=== PATIENT | male | born 1955 | race Caucasian/White ===

== ENCOUNTER 2025-05-31 18:10 | Inpatient (IN) | payer MEDICARE, OTHER, SELFPAY ==
[2025-05-31 15:11] VITALS: BP 108/63; BMI 30.1
--- NOTE | 2025-05-31 15:19 | ED.GENMED ---
History of Present Illness
General
Chief Complaint: Chest Pain
Source: patient
Exam Limitations: none
Time Seen by Provider: 05/31/25 15:18
Nursing documentation reviewed up to this point in time: agreed with
History of Present Illness
History of Present Illness:
Note:
CHIEF COMPLAINT(S)
Chest pain
HISTORY OF PRESENT ILLNESS
The patient is an 69-year-old male with a history of chronic heart failure and a pacemaker with defibrillator who presented with chest pain that began this morning. The pain started when he got out of bed to use the restroom and subsided upon lying
down. He reported accompanying symptoms of vomiting and shortness of breath. The patient indicated that the chest pain has resolved since arriving with the ambulance, and he felt better after being transported. [facility]
administered 324 mg of chewable aspirin.
The pacemaker and defibrillator were implanted following a stroke, and the patients last known ejection fraction was less than 20%, possibly increasing to 40% recently. The patient expressed concern that the pacemaker was not functioning correctly.
He also mentioned a past infection with Methicillin-resistant Staphylococcus aureus (MRSA) after surgery, which was treated with antibiotics.
PAST MEDICAL AND SURGICAL HISTORY
- Chronic heart failure
- Pacemaker with defibrillator implantation following stroke
- History of Methicillin-resistant Staphylococcus aureus (MRSA)
SOCIAL DETERMINANTS AFFECTING HEALTH
The patient reported a history of smoking, which he quit within the last year due to health concerns.
SOCIAL HISTORY
- Former smoker, recently quit within the last year
- No alcohol or drug use
MEDICATIONS
- Atorvastatin (Brand name: Crestor)
- Apixaban (Brand name: Eliquis)
REVIEW OF SYSTEMS
- Cardiovascular: Chest pain resolved
- Gastrointestinal: Vomiting
- Respiratory: Shortness of breath
PHYSICAL EXAM
General: Alert, no acute distress.
Skin: Warm, dry.
Head: Normocephalic, atraumatic.
Neck: Supple, trachea midline.
Eyes, Ears, Nose, Mouth, and Throat: Oral mucosa moist.
Cardiovascular: Normal peripheral perfusion, No edema.
Respiratory: Respirations are non-labored.
Gastrointestinal: Abdomen nondistended.
Back: Normal range of motion, Normal alignment.
Musculoskeletal: Normal range of motion, normal strength.
Neurological: Alert and oriented to person, place, time, and situation, No focal neurological deficit observed.
Psychiatric: Cooperative, appropriate mood & affect.
PROBLEM LIST
- Acute: Chest pain, Vomiting, Shortness of breath
- Chronic: Chronic heart failure, History of Methicillin-resistant Staphylococcus aureus (MRSA)
PLAN
- Evaluate the function of the pacemaker/defibrillator
- Consider further cardiac evaluation given the recent symptoms
- Monitor and possibly adjust medications for chronic heart failure management
DIFFERENTIAL DIAGNOSIS
The Differential Diagnosis includes, in no particular order and is not limited to:
- Angina pectoris
- Myocardial infarction
- Congestive heart failure exacerbation
- Gastroesophageal reflux disease
- Pulmonary embolism
- Atypical pneumonia
- Cardiac arrhythmia
- Panic attack or anxiety-related chest pain
- Pleural effusion
- Costochondritis
CARE-UPDATE
05/31/25 - 23:16
Patient admitted for CHF exacerbation. Lasix IV ordered. Monitor for any chest pain. Troponin levels are trending, and troponin is detectable; however, epinephrine is not indicated at this time.
EKG
My independent EKG interpretation is:
- Rhythm: Ventricular paced rhythm
- Heart Rate: 72 beats per minute
- Additional Information: Unable to determine ischemia
Disposition:
SUMMARY OF ENCOUNTER
The patient is a 69-year-old male with a history of chronic heart failure, a pacemaker with defibrillator, and past MRSA infection, who presented with chest pain, vomiting, and shortness of breath. The chest pain started this morning upon waking,
resolved after lying down, and subsided upon arrival with the ambulance. [facility] provided 324 mg of chewable aspirin. The patients echocardiogram showed less than 20% ejection fraction, possibly improving up to 40% recently. He
was admitted for exacerbation of chronic heart failure.
DISPOSITION
Admit
ASSESSMENT
The patient is likely experiencing an exacerbation of chronic heart failure, given his history and acute presentation symptoms like chest pain, vomiting, and shortness of breath.
EMERGENCY TREATMENTS ADMINISTERED
324 mg of aspirin was provided by the [facility].
PLAN
Evaluate the function of the pacemaker/defibrillator and consider cardiac evaluation given recent chest pain symptoms. Monitor and potentially adjust medications for chronic heart failure management.
INDEPENDENT REVIEW OF LABS AND INTERPRETATION OF TESTS
My independent EKG interpretation is a ventricular paced rhythm with a heart rate of 72 beats per minute. Unable to determine ischemia.
MEDICATION RECONCILIATION
Medications include atorvastatin and apixaban. Aspirin was administered by EMS.
MEDICAL DECISION MAKING
-Chronic conditions affecting care: Chronic heart failure, History of Methicillin-resistant Staphylococcus aureus (MRSA)
-DDx list: Angina pectoris, Myocardial infarction, Congestive heart failure exacerbation, Gastroesophageal reflux disease, Pulmonary embolism, Atypical pneumonia, Cardiac arrhythmia, Panic attack or anxiety-related chest pain, Pleural effusion,
Costochondritis.
-Data:
Category 1:
My independent interpretation of EKG indicates a ventricular paced rhythm, heart rate 72 beats per minute.
-Risk:
Decisions regarding diagnostic testing with risks include consideration of admission. Lasix IV ordered for CHF exacerbation.
DIAGNOSIS
Exacerbation of chronic heart failure (ICD-10: I50.9)
Chest pain, unspecified (ICD-10: R07.9)
Shortness of breath (ICD-10: R06.02)
Phy Exam
Physical Exam
Physical Exam:
.
Scores
Heart Failure Risk
Heart Failure Risk Score: Yes
History of Stroke or TIA: Yes
History of intubation for respiratory distress: No
Heart rate on ED arrival >/= 110: No
SaO2 <90% on arrival on room air: No
HR >/=110 during 3min walk test (or too ill to perform test): No
ECG has acute ischemic changes: No
Urea >/=12mmol/L (BUN 33.6mg/dL): No
Serum CO2>/=35mmol/L: No
Troponin I or T elevated to [place] Level (0.4mg/dL): No
NT-proBNP >/=5,000ng/L (5,000pg/ml): Yes
HF Risk Score: 2
Admission Status: MEDIUM RISK 9.2% Consider observation or discharge to home with homecare & f/u visit to PCP/Patient Relations Liaison, or SNF for treatment
Heart Score for Chest Pain Patients
STEMI patient?: No
History: Moderately Suspicious
ECG: Normal
Age: >/= 65 years
Risk Factors: >/= 3 Risk Factors or History of CAD
Troponin: >1 - <3 x Normal Limit
Heart Score for Chest Pain Patients: 6
Heart Score Risk: 20.3% MACE over next 6 weeks
Course
Orders/Labs/Results
Orders:
Orders
05/31/25 Dinner
2 Gram Sodium [Sodium, 2 Gram]
At Your Request: Limited Participation
05/31/25 15:18
Electrocardiogram (*1) Stat
Reason for Study: Other
Other Reason for Exam: chest pain
Cardiac Monitoring- Treatment ONCE
EKG- Treatment ONCE
Pulse Ox/cont/shift [RESP] Stat
Quantity: 1
05/31/25 15:19
CR Chest - 2 Views Urgent
Comment:
Reason For Exam: chest pain
05/31/25 15:24
Complete Blood Count/With Diff Urgent
Comprehensive Metabolic Panel Urgent
Magnesium Urgent
NT-proBNP Urgent
PTT Urgent
Prothrombin Time Urgent
Troponin I Urgent
05/31/25 16:43
Furosemide [Lasix] 40 mg IV NOW STA
05/31/25 17:38
Admit/Transfer Patient As Directed
Co-Sign Provider:
Level of Care: Inpatient admission
Assign to:: Telemetry
Physician / Group: Hospitalist Group
Diagnosis: Acute exacerbation of CHF
Reason for Telemetry: Arrhythmia
Date to Stop Telemetry: 06/03/25
Time to Stop Telemetry: 11:00
Reason for Hospitalization: As above
Expected length of stay greater than two midnights?: Yes
ELOS- Estimated Length of Stay in days: 3
I certify the patient meets the requirements for IP care: Yes
PRN Pain Medication Management As Directed
May give lesser potent ordered pain med per pt: Yes
preference::
Protocol:: Medication orders for pain may be administered in a
manner that supports deferring to patient preference
when the pt is:
- Requesting an ordered lesser potent pain medication.
Least to most potent pain medications are defined
as: acetaminophen < NSAID < tramadol < opioids
(morphine, oxycodone, hydromorphone).
- Requesting a lesser dose of the same medication IF
ORDERED.
- Requesting a less intrusive route of administration
if both routes are prescribed by the provider (PO <
IV).
05/31/25 17:41
Code Status As Directed
Resuscitation Status: Do not resuscitate
Reached after discussion with pt or family/Healthcare POA: Yes
DNR Bracelet Application ONCE
05/31/25 18:02
Obtain Records As Directed
Dates of Information to be Released: past 1 month
Type of Information Requested: Entire Record
Obtain Records from: [facility]
05/31/25 19:44
Albuterol [ProAIR HFA INHALER] 2 puff INH R Q4HPRN PRN wheezing/sob
Atorvastatin [Lipitor] 40 mg PO QPM
05/31/25 19:44
CT Head W/o Iv Contrast Routine
Comment:
Reason For Exam: Fall
CARDIOLOGY CONSULT Routine
Consulting Provider: Dana Reed
Was physician already notified: Yes
Consult Psychiatry [PSYCHIATRY CONSULT] Routine
Consulting Provider: Kristin Sotelo
Was physician already notified: Yes
HF DIETARY CONSULT Routine
HF EDUCATOR CONSULT Routine
Comment:
Activity As Directed
Activity Level: As Tolerated
Intake/ Output As Directed
Frequency: Per unit guidelines
Patient Education As Directed
Type: CHF folder
Comment: give on admission. Document in Interdisciplinary Education record
Sleep Apnea Assessment by RN As Directed
Comment:
Physician Instructions:
Vital Signs As Directed
Frequency: Other
Additional Instructions:: Q12 or per unit guidelines if more frequent.
Weight As Directed
Frequency: Daily
Type of Scale: Standing Scale
Comment: Daily morning weight. If unable to stand, use balanced bed scale.
Weight As Directed
Frequency: Once
Type of Scale: Standing Scale
Comment: Upon Admission. If unable to stand, use balanced bed scale.
CR Hip - LT w/wo Pel 2-3 Vw* Routine
Comment:
Reason For Exam: Fall on left hip
Include a pelvis x-ray?: Yes
CR Shoulder - Left Min 2 View* Routine
Comment:
Reason For Exam: Fall on left shoulder
Pulse Ox/cont/shift [RESP] Routine
Quantity: 1
Special Instructions: Daily pulse oximetry at rest. If greater than 92% at rest also obtain pulse oximetry
while ambulating as tolerated.
Ot Eval And Treat Routine
Pt Eval And Treat Routine
Activity Level: Ambulate
05/31/25 20:00
Apixaban [Eliquis] 5 mg PO BID
Divalproex Delayed Rel. 12 Hr [Depakote (12 Hr Release)] 1,000 mg PO BID
magnesium oxide 400 mg PO BID
05/31/25 20:43
Troponin I Q6H
Comment: at admission & every 6 hours x 2 (3 total), ECG to be done with each level
05/31/25 22:00
Melatonin 3 mg PO HS
06/01/25 01:44
Troponin I Q6H
Comment: at admission & every 6 hours x 2 (3 total), ECG to be done with each level
06/01/25 06:00
Echo 2D MMode Color/Doppler IN AM
Reason for Study: heart failure
Complete Blood Count/With Diff IN AM
Comprehensive Metabolic Panel IN AM
Magnesium IN AM
TSH Reflex To Free T4 IN AM
Levothyroxine [Synthroid] 100 mcg PO DAILY@0600
06/01/25 07:44
Troponin I Q6H
Comment: at admission & every 6 hours x 2 (3 total), ECG to be done with each level
06/01/25 08:00
Amiodarone [Pacerone] 200 mg PO DAILY
Aspirin Low Dose EC [Aspir Low (Enteric Coated)] 81 mg PO DAILY
Cyanocobalamin [Vitamin B-12] 1,000 mcg PO DAILY
Ergocalciferol [Drisdol (Vitamin D2)] 50,000 units PO MO@0800
Furosemide [Lasix] 40 mg IV BID AT 0800,1600
Metoprolol Xl [Toprol Xl] 25 mg PO DAILY
Sertraline HCl [Zoloft] 25 mg PO DAILY
empagliflozin 10 mg PO DAILY
06/03/25 11:00
DC Protocol for Telemetry ONCE
Abnormal Lab Results
05/31/25
15:24
RBC 4.05 L 10^6/uL
(4.70-6.10)
Hct 38.8 L %
(39.0-52.0)
MCV 95.8 H fL
(80.0-94.0)
MCH 32.3 H pg
(27.0-31.0)
MPV 10.5 H fL
(7.4-10.4)
Lymphocytes % 19.7 L %
(20.5-51.1)
Chloride 108 H mmol/L
(98-107)
BUN 27 H mg/dl
(9-20)
Glucose 160 H mg/dl
(70-99)
Troponin I 0.042 H* ng/ml
05/31/25 15:24
05/31/25 15:24
Vital Signs
Initial and Last Documented VS:
Initial Vital Signs
Temp Pulse Resp BP Pulse Ox
98.1 F 68 16 108/63 96
05/31/25 15:11 05/31/25 15:11 05/31/25 15:11 05/31/25 15:11 05/31/25 15:11
Last Documented Vital Signs
Temp Pulse Resp BP Pulse Ox
98.3 F 64 16 113/61 95
05/31/25 19:50 05/31/25 19:50 05/31/25 19:50 05/31/25 19:50 05/31/25 19:50
*Pulse Oximetry
Patient hypoxic: no
*Critical Care Note
Total Time (30-74mins, 75-104mins- exclusive of procedures): Not Applicable
ED Attending Note
-
Portions of this chart may have been created with voice recognition software.� Occasional wrong word or��sound alike� substitutions may have occurred due to the inherent limitations of voice recognition software.
Discharge Plan
Departure
Patient Disposition: Admit
Date of Disposition: 05/31/25
Time of Disposition: 18:09
Admit to: Telemetry
Presentation/result/management discussed w/ accepting MD/DO: Hospitalist
Condition: Good
Discharge Problem:
CHF (congestive heart failure), Chest pain
Interventions
Interventions:
*Risk Screen - Suicide Last Done: 05/31/25 19:55
*General Assessment Last Done: 05/31/25 15:11
*Neglect/Abuse Screening Last Done: 05/31/25 15:11
*ED- Fall Risk Assessment Last Done: 05/31/25 17:39
*ED COVID-19 Vaccine History Last Done: 05/31/25 19:55
*Nursing Disposition Last Done: 05/31/25 19:30
ED- Cardiac Assessment Last Done: 05/31/25 17:39
Discharge Date and Time
Discharge Date/Time: 05/31/25 19:30
[2025-05-31 15:42] LABS: Hematocrit 38.8 % (39.0-52.0); Hemoglobin 13.1 g/dL (13.0-18.0); Mean Corp Hgb Conc. 33.8 g/dL (33.0-37.0); Mean Corpuscular Volume 95.8 fL (80.0-94.0); Nucleated Red Blood Cells % 0 % (-); Platelet Count 135 10^3/uL (130-400); Red Cell Dist. Width 12.2 % (11.5-14.5)
[2025-05-31 15:46] LABS: INR 1.09; PT 14.4 Sec (11.4-14.6)
[2025-05-31 15:47] LABS: APTT 25.0 Sec (23.4-35.0)
[2025-05-31 15:50] LABS: ALT (SGPT) 14 U/L (0-50); AST (SGOT) 22 U/L (17-59); Albumin 4.0 g/dl (3.5-5.0); Alkaline Phosphatase 48 U/L (38-126); Blood Urea Nitrogen 27 mg/dl (9-20); Calcium 9.6 mg/dl (8.4-10.2); Carbon Dioxide 28 mmol/L (22-30); Chloride 108 mmol/L (98-107); Estimated Creatinine Clearance 86 ml/min; Glucose 160 mg/dl (70-99); Magnesium 1.6 mg/dl (1.6-2.3); Potassium 5.0 mmol/L (3.5-5.1); Sodium 140 mmol/L (135-145); Total Protein 6.5 g/dl (6.3-8.2); eGFR > 60.00
[2025-05-31 16:00] VITALS: BP 107/66
[2025-05-31 16:06] LABS: Troponin I 0.042 ng/ml
[2025-05-31] MEDS: LASIX 40 MG IV (16:57)
[2025-05-31 17:00] VITALS: BP 114/69
--- NOTE | 2025-05-31 17:22 | W.PN.UPDATE ---
Update Note
Progress Note Update
This update note is intended as an addendum to the history and physical in the chart written by the resident.
I personally performed a history and physical exam of the patient and discussed management with the resident. I reviewed the resident's note and agree with the documented findings and plan of care HPI/CC.
Mr. Alston is a 69-year-old male with a medical history of recent stroke residual left-sided weakness and heart failure with reduced ejection fraction who presented from assisted living facility due to dizziness, chest pain, and lower extremity
swelling. Patient reports poor care at his living facility and not having received his medications for the past 3 days. In the ED he was mildly hypotensive which is likely his baseline (on midodrine as outpatient) but otherwise hemodynamically
stable. His labs were significant for mildly elevated troponin of 0.042 and a proBNP of 6500. Chest x-ray showed no acute abnormalities. He is currently chest pain-free and breathing comfortably. He is tearful and depressed upon interview saying
he has not seen his girlfriend in many days and thinks she may have . He does not want to spend the rest of his life back and forth between the hospital and his assisted living facility. 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 He has been admitted for further evaluation and management of chest pain and CHF exacerbation?
Physical exam
General: Tearful, no acute distress
HEENT: Atraumatic, EOMI, anicteric sclera
CV: Regular rhythm, rate controlled around 60, no murmur
Pulm: No wheezing or rhonchi, no increased work of breathing
Abdomen: Soft, nontender
Extremities: Mild pedal edema, no deformity
Skin: Mild abrasion right galindo, warm and dry
Neuro: CN II through XII intact, no tremor, mild left upper and lower extremity weakness
Psych: Calm, depressed affect, tearful
Acute on chronic HFrEF:
- IV diuretics, monitor I's and O's and daily weights
- GDMT as blood pressure tolerates (patient reports being on Entresto although I do not see this on his medication reconciliation)
- Beta-blockade with metoprolol succinate 25 mg daily
- Echocardiogram
- Cardiology consult
- Would recommend involving palliative care for assistance with clarifying goals of care
Chest pain:
- With associated elevated troponin
- No acute changes on EKG
- Continue telemetry monitoring
- trend troponins
- Continue home aspirin and statin
Depression:
- Unclear about severity of depression on a chronic basis but currently appears significantly depressed
- Is on sertraline and divalproex (for depression?) at home which we will continue while inpatient
- Titration of depression medications as appropriate considering acuity of depression
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
[2025-05-31 18:00] VITALS: BP 119/70
[2025-05-31 19:50] VITALS: BP 113/61; BMI 27.6
--- NOTE | 2025-05-31 20:00 | PTCARENOTE ---
Pt arrived to room 432-01. Pt ambulated from stretcher to bed x1 assist with cane. Pt AAOx3, VSS. Pt oriented to room, call velasco placed within reach. Bed alarm in place.
[2025-05-31 20:24] VITALS: BMI 27.6
[2025-05-31 21:13] LABS: Troponin I 0.051 ng/ml
[2025-05-31] MEDS: LIPITOR 40 MG PO (21:25)
[2025-05-31] MEDS: MELATONIN 3 MG PO (21:26)
[2025-05-31] MEDS: DEPAKOTE (12 HR RELEASE) 1000 MG PO (21:26)
[2025-05-31] MEDS: ELIQUIS 5 MG PO (21:26)
[2025-05-31 23:30] VITALS: BP 108/65
[2025-06-01] VITALS (7 sets, daily range): BP systolic 102–124; BP diastolic 56–69; PULSE 65–66; O2SAT 96–97; BMI 28.7; BMI 28.4
[2025-06-01 02:49] LABS: Troponin I 0.067 ng/ml
[2025-06-01] MEDS: SYNTHROID 100 MCG PO (06:31)
--- NOTE | 2025-06-01 08:41 | W.PN.HOSP.TC ---
Addendum entered and electronically signed by Gisselle Subramanian MD 06/01/25 13:16:
I saw and evaluated the patient independently. I reviewed the resident�s note and agree with findings and plan as documented by Dr. Boateng.
GENERAL: well developed, well nourished, male in no apparent distress
HEENT: NC/AT--slight left facial droop, loss of nasolabial fold
HEART: regular rate and rhythm, +S1, +S2
LUNGS : clear to auscultation bilaterally
ABDOM: soft, nontender, nondistended, + bowel sounds
EXT: no cyanosis, clubbing, or edema
NEUROLOGIC: left sided weakness
Chest pain-- doubt ACS--EKG showed ventricular paced rhythm, no ST segment changes--trend troponin--await cards input--check ECHO- Continue aspirin, statin, metoprolol
Acute on chronic HFrEF-- ProBNP 6580 on presentation, no pulmonary congestion on CXR--Hold home torsemide�-cont IV Lasix 40 Mg twice daily� Continue GDMT therapy with SGLT2, metoprolol succinate 25 mg daily--await ECHO--daily weight, I/Os
Mechanical fall-- Occurred yesterday, positive head strike, landed on left side of body--CT scan/x-rays without acute issues--PT/OT rec SNF
Presumed persistent? Atrial fibrillation with ventricular pacing- Continue home amiodarone, metoprolol- Continue Eliquis
Hypothyroidism� Continue levothyroxine� Check TSH
Depression/anxiety- Continue sertraline, divalproex--apprec psych--no longer suicidal--1:1 stopped
Hyperlipidemia-Continue statin
COPD-Not in acute exacerbation-Continue home regimen
CODE STATUS-- DNR
DVT proph-- Eliquis
Original Note:
Today's Communication/Plan
-
Awaiting Echo results.
IV Lasix 40 mg BID
Cardiology consulted.
Psychiatry consulted.
Assessment / Plan
Assessment / Plan
69-year-old male with a past medical history of CVA with residual left-sided hemiparesis, atrial fibrillation with ventricular pacing, heart failure with reduced ejection fraction, hypothyroidism, COPD, depression and anxiety who presented with
chest pain. Patient had an episode of left-sided chest pain with associated shortness of breath, palpitations, lightheadedness, 1 episode of vomiting and cough. Patient had a fall 05/30/25 while walking back from the grocery store to his assisted
living facility ([facility]) where he landed on the left side of his body and had a possible head strike on the ground. The police were called but patient was not taken to the hospital as he endorsed feeling well. He expresses suicidal ideation
with plan of stepping into traffic, and states he 'cannot live without his girl' who he assumes is .
ASSESSMENT/PLAN:
# Chest pain -concern for ACS
EKG showed ventricular paced rhythm, no ST segment changes
- Admitted to telemetry
- Trending troponin every 6 hours, 0.042, 0.051, 0.067, and 0.063 this morning.
- Serial EKG monitoring
- Continue aspirin, statin, metoprolol
- Cardiology consulted: will see him this morning
#Acute on chronic HFrEF
- ProBNP 6580 on presentation, no pulmonary congestion on CXR
- Hold home torsemide
� Start IV Lasix 40 Mg twice daily
� Continue GDMT therapy with SGLT2, metoprolol succinate 25 mg daily
� Awaiting Echo results
� Daily weights, I's and O's
� Trend BMP
� Monitor blood pressure, given patient's home use with midodrine
- Possibly involve palliative care for goals of care conversation
# Mechanical fall
- Occurred yesterday, positive head strike, landed on left side of body
- CT head without contrast: No acute intracranial hemorrhage or extra-axial collection.
- XR Left shoulder and XR L hip/pelvis: showed no fracture or dislocation.
- PT/OT consulted
#Atrial fibrillation with ventricular pacing
- Continue home amiodarone, metoprolol
- Continue Eliquis
#Hypothyroidism
� Continue levothyroxine
� Check TSH
#Depression/anxiety
- Continue sertraline, divalproex
- Admits suicidal ideation with a plan of stepping into traffic
- Psych consulted
#Hyperlipidemia
-Continue statin
#COPD
-Not in acute exacerbation
-Continue home regimen
CODE STATUS DNR
DVT prophylaxis: Eliquis
Anticipated Discharge: > 48 hours
Subjective/Interval History
-
Date of Service: June 01, 2025
Patient denies chest pain, shortness of breath, lightheadedness or any other symptoms. He states he wants help for his depression, and does want to be treated in the hospital because he promised Dr. Johnson he would be here for at least 24 hours.
Patient does not want to return to [facility] because of poor living conditions, and states he would 'rather live in the [place] [facility] by himself.' Patient also states he is 'going to be careful about what [he] says' since he already has a sitter.
Objective Data
-
Labs:
Laboratory Results
06/01/25 06/01/25
06:00 08:15
WBC Pending
Hgb Pending
Hct Pending
Plt Count Pending
Sodium Pending
Potassium Pending
Chloride Pending
Carbon Dioxide Pending
BUN Pending
Creatinine Pending
Glucose Pending
Calcium Pending
Total Bilirubin Pending
AST Pending
ALT Pending
Alkaline Phosphatase Pending
Vital Signs:
Vital Signs
Temp Pulse Resp BP Pulse Ox
97.4 F 65 14 124/69 98
06/01/25 07:00 06/01/25 07:00 06/01/25 07:00 06/01/25 07:00 06/01/25 07:00
I&O
05/31/25 06/01/25 06/02/25
06:59 06:59 06:59
Intake Total 240 / 240
Output Total 1000 / 1000
Balance -760 / -760
Review of Systems
-
History Source: Patient
All other systems: Reviewed and negative
Constitutional: Reports No Symptoms
EENT: Reports No Symptoms Reported
Respiratory: Reports No Symptoms
Cardiac: Reports No Symptoms
Abdomen/GI: Reports No Symptoms
Breast: Reports No Symptoms
Genitourinary: Reports No Symptoms
Musculoskeletal: Reports No Symptoms
Skin: Reports No Symptoms
Endocrine: Reports No Symptoms
Hematologic / Lymphatic: Reports No Symptoms
Psych: Reports Depressed and Sad (and tearful)
Physical Exam
-
General: Well Developed, Well Nourished, No Apparent Distress, Comfortable and Conversant
HEENT: Normocephalic, Atraumatic, Moist Mucous Membranes and Anicteric
Respiratory: Clear to Auscultation
Cardiac: Regular Rhythm and S1/S2
GI: Soft, Nontender, Nondistended and Normal Bowel Sounds
Musculoskeletal: No Clubbing, No Cyanosis, No Edema, Edema, Right Lower Extrem (1+ pitting) and Edema, Left Lower Extrem (1+ pitting)
Skin: Warm
Neuro: Awake, AO x 3 and Nonfocal/Grossly Intact
Psych: Depressed (Tearful)
Data Reviewed
-
Old Records: Reviewed
[2025-06-01] MEDS: MAG-TAB SR 84 MG PO ×2 (08:49→19:28)
[2025-06-01] MEDS: ZOLOFT 25 MG PO (08:49)
[2025-06-01] MEDS: DEPAKOTE (12 HR RELEASE) 1000 MG PO ×2 (08:49→19:28)
[2025-06-01] MEDS: TOPROL XL 25 MG PO (08:49)
[2025-06-01] MEDS: PACERONE 200 MG PO (08:49)
[2025-06-01] MEDS: FARXIGA 10 MG PO (08:49)
[2025-06-01] MEDS: VITAMIN B-12 1000 MCG PO (08:49)
[2025-06-01] MEDS: ASPIR LOW (ENTERIC COATED) 81 MG PO (08:49)
[2025-06-01] MEDS: ELIQUIS 5 MG PO ×2 (08:49→19:28)
[2025-06-01] MEDS: LASIX 40 MG IV ×2 (08:50→16:24)
[2025-06-01] MEDS: DRISDOL (VITAMIN D2) 50000 UNITS PO (09:03)
[2025-06-01 09:09] LABS: ALT (SGPT) 15 U/L (0-50); AST (SGOT) 22 U/L (17-59); Albumin 3.8 g/dl (3.5-5.0); Alkaline Phosphatase 53 U/L (38-126); Blood Urea Nitrogen 23 mg/dl (9-20); Calcium 9.4 mg/dl (8.4-10.2); Carbon Dioxide 29 mmol/L (22-30); Chloride 107 mmol/L (98-107); Estimated Creatinine Clearance 97 ml/min; Glucose 92 mg/dl (70-99); Magnesium 1.7 mg/dl (1.6-2.3); Potassium 4.7 mmol/L (3.5-5.1); Sodium 140 mmol/L (135-145); Total Protein 6.3 g/dl (6.3-8.2); eGFR > 60.00
[2025-06-01 09:37] LABS: Troponin I 0.063 ng/ml
--- NOTE | 2025-06-01 09:42 | CON.CAR ---
Addendum entered and electronically signed by Yann Vázquez DO 06/01/25 17:44:
I saw and examined the patient.
The Program Support Assistant's note was reviewed and I agree with the note.
Comment:
Plan:
Continue IV Lasix diuresis.
Check echocardiogram. History of improved cardiomyopathy.
Continue medical therapy for cardiomyopathy as his blood pressure will allow. Continue Farxiga and metoprolol. Entresto was held previously potentially due to hypotension. He had been on midodrine in the past but is currently not requiring this.
Remains sinus rhythm on amiodarone 200 mg daily and anticoagulation with Eliquis.
Continue medical therapy of non-WI troponin.
Requested records.
Original Note:
Consultation
Consultation Request
Date/Time Consultation Requested: 06/01/2025
Date/Time Consultation Performed: 06/01/2025
Requesting Provider: Dr. Subramanian
Performing Provider: Argelia Benavides PA-C for Dr. Vázquez
Reason for Consultation: CHF, CM
Medical History
-
History of Present Illness:
HPI: Nas is a 69 year old male with PMH of chronic HFrEF, paroxysmal atrial fibrillation, CAD, CM, [employer]-D, prior CVA, HLD, hypothyroidism, depression, anxiety, and COPD. He notes he was recently admitted at [facility] and was discharged to
nursing facility where he has been residing. He states he has been under increased stress there and does not think he has been getting his usual cardiac medications. He then developed chest pain, shortness of breath, and dizziness, so EMS was called
and he was brought to [facility] ER. In ER, he was found to have evidence of acute heart failure with proBNP elevated at 6580. Also w/ elevated troponin. He was admitted for further workup and evaluation and cardiology consulted. He notes he is feeling
better from a chest pain/breathing standpoint. No recurrent chest pain noted. Breathing feels stable this AM. He continues to struggle with depression and becomes tearful at times during exam.
PMH:
Chronic HFrEF
Paroxysmal atrial fibrillation
Chronic Eliquis anticoagulation
Multivessel CAD, medically managed
Ischemic CM, EF previously 25%, improved to 40% by echo 01/2025
s/p Medtronic CTR-D 08/01/2024
h/o recent CVA
HLD
Hypotension, on chronic midodrine
Hypothyroidism
Depression/anxiety
COPD
Past Medical History
Past Medical History: Other (In HPI)
Past Surgical History: Cardiac (s/p [employer]PER[employer] SHOP-D 07/2024)
Social History
Tobacco: Former Smoker
Alcohol: Occasional
Personal: Single
Living: Assisted Living
Family History
Family History: Reviewed & Not Pertinent
Allergies / Home Medications
Allergy/AdvReac Type Severity Reaction Status Date / Time
No Known Allergies Allergy Unverified 05/31/25 15:10
�Medication �Instructions �Recorded �Confirmed �Type
albuterol sulfate 90 mcg/actuation 2 puff inhalation R Q4HPRN PRN 05/31/25 05/31/25 History
aerosol inhaler wheezing/sob
amiodarone 200 mg tablet 200 mg PO DAILY Arrhythmia 05/31/25 05/31/25 History
apixaban 5 mg tablet (Eliquis) 5 mg PO BID Blood Clot 05/31/25 05/31/25 History
Prevention/Tx
aspirin 81 mg tablet,delayed 81 mg PO DAILY Blood Clot 05/31/25 05/31/25 History
release Prevention/Tx
atorvastatin 40 mg tablet 40 mg PO QPM High Cholesterol 05/31/25 05/31/25 History
cyanocobalamin (vitamin B-12) 1,000 mcg PO DAILY Supplement 05/31/25 05/31/25 History
1,000 mcg tablet
divalproex 500 mg tablet,delayed 1,000 mg PO BID Neurological 05/31/25 05/31/25 History
release Condition
empagliflozin 10 mg tablet 10 mg PO DAILY Heart Failure 05/31/25 05/31/25 History
ergocalciferol (vitamin D2) 1,250 1,250 mcg PO QWEEK Supplement 05/31/25 05/31/25 History
mcg (50,000 unit) capsule
levothyroxine 100 mcg tablet 100 mcg PO DAILY Thyroid 05/31/25 05/31/25 History
magnesium oxide 400 mg PO BID Supplement 05/31/25 05/31/25 History
melatonin 3 mg tablet 3 mg PO HS Sleep 05/31/25 05/31/25 History
metoprolol succinate 25 mg 25 mg PO DAILY Heart Failure 05/31/25 05/31/25 History
tablet,extended release 24 hr
midodrine 2.5 mg tablet 7.5 mg PO TID Blood Pressure 05/31/25 05/31/25 History
sertraline 25 mg tablet 25 mg PO DAILY Mental Health 05/31/25 05/31/25 History
torsemide 20 mg tablet 40 mg PO DAILY Fluid 05/31/25 05/31/25 History
Retention/Swelling
Review of Systems
-
History Source: Patient
All other systems: Negative unless noted
Physical Exam
Vital Signs
Temp Pulse Resp BP Pulse Ox
97.4 F 65 14 124/69 98
06/01/25 07:00 06/01/25 08:49 06/01/25 07:00 06/01/25 08:49 06/01/25 07:00
Lab Results
06/01/25 08:15
Troponin I 0.063 ng/ml H* 06/01/25 09:00
Zvd-R-Ukohzjejczy Pept 6580 pg/ml 05/31/25 15:24
Physical Exam
General: Well Developed, Well Nourished and No Apparent Distress
HEENT: Normocephalic, Anicteric and Moist Mucous Membranes
Respiratory: Clear and Non Labored Respirations
Cardiac: S1/S2 and Regular Rhythm
Musculoskeletal: No Clubbing, No Cyanosis and No Edema
Skin: Warm and Dry
Neuro: AO x 3 and Nonfocal/Grossly Intact
Impression / Plan
-
PCP: None
Hospitality Specialist: Dr. Romero Zamora ([facility])
Impression:
Presented with chest pain, SOB, dizziness
Acute on chronic HFmrEF
Paroxysmal atrial fibrillation
Chronic Eliquis anticoagulation
Multivessel CAD by prior cath at [facility] 07/2024, medically managed
Ischemic CM, EF previously 25%, improved to 40% by echo 01/2025
s/p Medtronic CTR-D 08/01/2024
h/o recent CVA
HLD
Hypotension, on chronic midodrine
Hypothyroidism
Depression/anxiety
COPD
LHC 07/[address] [facility]'s: Severe diffuse coronary disease. [employer] of the mid LAD with severe diffuse disease of all branch vessels. Ramus intermedius contained a 95% stenosis in the mid vessel and the circumflex contained a 90% stenosis in mid
vessel. RCA was free of critical disease.
Echo 01/25/2025 @ [facility]: EF 40%, moderate global hypokinesis mild , mild MAC, trace MR, mild TR
Echo 06/01/2025: Study completed, report pending.
Plan:
-Presented with chest pain, SOB, and dizziness. Admitted with acute heart failure and elevated troponin.
-Diuresing with IV lasix 40mg BID.
-Weight down to 211 lbs overnight. Continue to follow daily weights, I&Os.
-Creat stable at 0.8.
-Check echo. Known history of ischemic cardiomyopathy with EF previously 25%, improved to 40% by echo 01/2025.
-Continue medical therapy for CM as BP allows. Continue Farxiga 10mg daily, metoprolol 25mg daily. Previously on Entresto, suspect stopped recently as OP due to hypotension.
-Has been maintained on midodrine as OP, not currently requiring.
-History of atrial fibrillation noted. No recent arrhythmia noted on device check in ER. Continue amiodarone 200mg daily.
-EKG reviewed, paced w/ no acute changes noted.
-Continue anticoagulation with Eliquis 5mg BID and aspirin 81mg daily due to h/o CAD and recent CVA by report.
-Elevated troponin noted, peaking at 0.067 and trending down thereafter. Suspect nonischemic myocardial injury in the setting of acute heart failure exacerbation.
-TSH within normal limits at 1.84.
-Records requested and reviewed from primary staff readiness officer.
HPI: Nas is a 69 year old male with PMH of chronic HFrEF, paroxysmal atrial fibrillation, CAD, CM, [employer]-D, prior CVA, HLD, hypothyroidism, depression, anxiety, and COPD. He notes he was recently admitted at [facility] and was discharged to
nursing facility where he has been residing. He states he has been under increased stress there and does not think he has been getting his usual cardiac medications. He then developed chest pain, shortness of breath, and dizziness, so EMS was called
and he was brought to [facility] ER. In ER, he was found to have evidence of acute heart failure with proBNP elevated at 6580. Also w/ elevated troponin. He was admitted for further workup and evaluation and cardiology consulted. He notes he is feeling
better from a chest pain/breathing standpoint. No recurrent chest pain noted. Breathing feels stable this AM. He continues to struggle with depression and becomes tearful at times during exam.
Data Reviewed
-
EKG: Tracing Personally Visualized and interpreted
Radiology: Report Reviewed by me
CT Scan: Report Reviewed by me
Labs: Labs Reviewed by me
Old Records: Requested and Reviewed
[2025-06-01 09:51] LABS: Hematocrit 40.6 % (39.0-52.0); Hemoglobin 13.6 g/dL (13.0-18.0); Mean Corp Hgb Conc. 33.5 g/dL (33.0-37.0); Mean Corpuscular Volume 97.4 fL (80.0-94.0); Nucleated Red Blood Cells % 0 % (-); Platelet Count 135 10^3/uL (130-400); Red Cell Dist. Width 12.1 % (11.5-14.5)
--- NOTE | 2025-06-01 11:26 | CS.PSYCHR ---
Consult Summary - Psychiatry
-
Pt is a 69 yo male with hx of recent stroke with residual left-side weakness, HFrEF, who presented from assisted living facility with lower ext swelling, dizziness, chest pain. Pt admitted acute on chronic heart failure, mildy elevated Troponin.
Pt noted stating he feels depressed, does not want to live anymore without his girlfriend. Pt is on Zoloft 25 mg QD and Depakote 1000 mg BID, which he states his for recent onset of mood instability, with episodes of tearfulness. Pt reportedly
feared his girlfriend had because he hadn't seen her for a while. Today he states she may be hospitalized somewhere. He states she is his caregiver, was helping him at home and they became close. Pt states he is unhappy about being in
assisting living and nursing facilities, reports he was evicted from his apartment, then had the stroke a couple days later, unclear about the date when this occurred. Pt complains about his family, states his [id number] takes him to the
hospital- last time was March 2025 at [facility] for legs swelling and falling. Pt states a doctor there diagnosed him with Vascular Dementia, but he does not agree with this. Pt states he feels depressed due to losses/circumstances. He denies
active SI, denies any suicidal intent or impulse to act.
Psych Hx: denied prior to stroke; reports he was in the 'Senior Behavior Unit' at [facility] due to agitation. Pt denies past depression, states he has had a good life
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
MSE: pt alert, oriented, sitting up in bed, making eye contact. Speech spontaneous, continuous, mildly pressured, giving information, answering questions. Mood dysphoric, affect appropriate, tearful at times. No overt signs of psychosis, no
signs of cailin. Pt denies active suicidal ideation, reports recent passive thoughts of nothing to live for. Insight limited to fair
Imp: Unspecified Depressive d/o, denies any intent to act on passive SI
Rec: Consider increasing Zoloft, although pt is ambivalent about this, states he prefers not to be on as many medications.
Will check VPA level, since pt is on a significant dose of Depakote reportedly for mood
Will stop 1:1 supervision, does not appear to be necessary. Will follow
--- NOTE | 2025-06-01 15:24 | CM ---
manager orange reviewed patient's chart and met with patient this am, patient reports that he was at [facility] and was discharged to [facility], patient reports that he has a long history of placement, and has been recently in [place]
[facility] for psych placement for some agitation, prior to that patient has been mainly in the [place] area at [facility], [facility], and has spent time in [place], patient reports that he goes to nursing homes and
is cleared for discharge and leaves and ends up going to the hospitals to be placed again. Patient reports that he is agreeable to placement, he is independent with adl's and uses a cane with ambulation, patient reports falls.
Plan; Skilled placement, patient will need [facility] evaluation for placement, referral sent. Patient agreeable to any snf, referrals sent to [facility], [facility], [facility], [facility] and [facility].
PCP: None
Pharmacy: unknown
[2025-06-01] MEDS: LIPITOR 40 MG PO (17:17)
[2025-06-01] MEDS: MELATONIN PO (21:35)
[2025-06-02 03:52] VITALS: BP 95/55
[2025-06-02] MEDS: SYNTHROID 100 MCG PO (05:45)
[2025-06-02 06:00] VITALS: BMI 27.9
[2025-06-02 08:11] VITALS: BP 109/68
[2025-06-02] MEDS: LASIX 40 MG IV (08:33)
[2025-06-02] MEDS: ASPIR LOW (ENTERIC COATED) 81 MG PO (08:34)
[2025-06-02] MEDS: ELIQUIS 5 MG PO ×2 (08:34→20:23)
[2025-06-02] MEDS: DEPAKOTE (12 HR RELEASE) 1000 MG PO ×2 (08:34→20:23)
[2025-06-02] MEDS: PACERONE 200 MG PO (08:34)
[2025-06-02] MEDS: FARXIGA 10 MG PO (08:34)
[2025-06-02] MEDS: VITAMIN B-12 1000 MCG PO (08:34)
[2025-06-02] MEDS: TOPROL XL 25 MG PO (08:34)
[2025-06-02] MEDS: MAG-TAB SR 84 MG PO ×2 (08:34→20:23)
[2025-06-02 08:35] LABS: Hematocrit 42.1 % (39.0-52.0); Hemoglobin 14.1 g/dL (13.0-18.0); Mean Corp Hgb Conc. 33.5 g/dL (33.0-37.0); Mean Corpuscular Volume 95.0 fL (80.0-94.0); Nucleated Red Blood Cells % 0 % (-); Platelet Count 141 10^3/uL (130-400); Red Cell Dist. Width 11.9 % (11.5-14.5)
[2025-06-02] MEDS: ZOLOFT 25 MG PO (08:35)
[2025-06-02 08:56] LABS: Depakane 63.9 ug/ml (50.0-120.0)
[2025-06-02 08:59] LABS: ALT (SGPT) 16 U/L (0-50); AST (SGOT) 22 U/L (17-59); Albumin 4.0 g/dl (3.5-5.0); Alkaline Phosphatase 60 U/L (38-126); Blood Urea Nitrogen 26 mg/dl (9-20); Calcium 9.6 mg/dl (8.4-10.2); Carbon Dioxide 31 mmol/L (22-30); Chloride 103 mmol/L (98-107); Estimated Creatinine Clearance 78 ml/min; Glucose 97 mg/dl (70-99); Potassium 4.7 mmol/L (3.5-5.1); Sodium 139 mmol/L (135-145); Total Protein 6.6 g/dl (6.3-8.2); eGFR > 60.00
[2025-06-02 09:05] LABS: Troponin I 0.066 ng/ml
--- NOTE | 2025-06-02 11:26 | W.PN.CARDCBS ---
Addendum entered and electronically signed by Yann Vázquez DO 06/02/25 20:23:
I saw and examined the patient.
The Dispute Coordinator's note was reviewed and I agree with the note.
Comment:
Plan:
He has hx of ischemic CM with EF previously 25%, improved to 40% by echo 01/2025 now found to be reduced at 25 to 30% on echo this admission
Cont IV diuresis
Cont Toprol and Farxiga.
Entresto stopped previously due to hypotension; consider ACEI/ARB this admit if bp can tolerate as part of GDMT
Cont Eliquis and amiodarone for hx PAfib; no recent AFib on PPM interrogation
Cont ASA for hx of CAD, medical management of multivessel CAD by cath [facility]
Cont tx of anxiety and depression, pt may need geriatric psych facility.
Original Note:
Today's Communication / Plan
-
Continue IV diuresis
Continue Toprol, Farxiga. FREDIS/ARB currently on hold secondary to hypotension. Could consider starting low-dose ARB after transition to oral Lasix
Continue Eliquis and amiodarone
Impression / Plan
-
PCP: None
Fiberglass Ski Maker: Dr. Romero Zamora ([facility])
Impression:
Presented 05/31/2025 with chest pain, SOB, dizziness
Acute on chronic HFmrEF, proBNP 6580
Paroxysmal atrial fibrillation
Abnormal troponin, peaked at 0.067
Chronic Eliquis anticoagulation
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 07/2024, medically managed
Ischemic CM, EF previously 25%, improved to 40% by echo 01/2025, 25-30% on echo 06/10/2025
s/p [employer] CTR-D 08/01/2024
h/o recent CVA
HLD
Hypotension, on chronic midodrine
Hypothyroidism
Depression/anxiety
COPD
Ambulatory dysfunction
[facility] 07/2024 at [facility]: Severe diffuse coronary disease. CUT OFF TENDER GLASS of the mid LAD with severe diffuse disease of all branch vessels. Ramus intermedius contained a 95% stenosis in the mid vessel and the circumflex contained a 90% stenosis in mid
vessel. RCA was free of critical disease.
Echo July 2024 : EF 25% with mild to moderate MR. CMR showed EF of 19% with RV EF 25%. Both chambers dilated. Scar of apical and lateral wall with some variability.
Echo 01/25/[address] [facility]: EF 40%, moderate global hypokinesis mild , mild MAC, trace MR, mild TR
Echo 06/01/2025: EF 25 to 30%. LV cavity size 6.80. Inferior, inferolateral, lateral and anterolateral segments with severe hypokinesis. Mildly dilated left atrium. Aortic sclerosis without significant stenosis.
Plan:
-Presented 05/31/2025 with chest pain, SOB, and dizziness. Admitted with acute heart failure, proBNP 6580 and elevated troponin.
-Ongoing Diuresis with IV lasix 40mg BID.
-Weight down to 205 lbs. Continue to follow daily weights, I&Os.
-Creat stable at 1.0.
-Known history of ischemic cardiomyopathy with EF previously 25%, improved to 40% by echo 01/2025 now found to be reduced at 25 to 30% on echo this admission
-Continue medical therapy for heart failure and cardiomyopathy as BP allows. Continue Farxiga 10mg daily, metoprolol 25mg daily. Previously on Entresto, stopped as OP due to hypotension. Blood pressure remains soft this admission and would hold on
resuming at this time. Could consider starting low-dose FREDIS-I/ARB if blood pressure allows after transition to oral Lasix
-Has been maintained on midodrine as OP, not currently requiring.
-History of atrial fibrillation noted. No recent arrhythmia noted on device check in ER. Continue amiodarone 200mg daily and Eliquis
-Continue anticoagulation with Eliquis 5mg BID and aspirin 81mg daily due to h/o CAD and recent CVA by report.
-Elevated troponin noted, peaking at 0.067 and trending down thereafter. Suspect nonischemic myocardial injury in the setting of acute heart failure exacerbation.
-TSH within normal limits at 1.84.
Outpatient cardiology records received reviewed
HPI: Nas is a 69 year old male with PMH of chronic HFrEF, paroxysmal atrial fibrillation, CAD, CM, SUBSTANCE ADDICTION COORDINATOR-D, prior CVA, HLD, hypothyroidism, depression, anxiety, and COPD. He notes he was recently admitted at [place] and was discharged to
nursing facility where he has been residing. He states he has been under increased stress there and does not think he has been getting his usual cardiac medications. He then developed chest pain, shortness of breath, and dizziness, so EMS was called
and he was brought to [facility] ER. In ER, he was found to have evidence of acute heart failure with proBNP elevated at 6580. Also w/ elevated troponin. He was admitted for further workup and evaluation and cardiology consulted. He notes he is feeling
better from a chest pain/breathing standpoint. No recurrent chest pain noted. Breathing feels stable this AM. He continues to struggle with depression and becomes tearful at times during exam.
Progress Note - Fiberglass Ski Maker
Subjective
Date of Service: June 02, 2025
Patient seen and examined. Patient resting in bed. Complaining of fatigue and short of breath still
Objective
Labs:
06/02/25 08:14
06/02/25 08:14
Labs
Hgb 14.1 g/dL (13.0-18.0) 06/02/25 08:14
Hct 42.1 % (39.0-52.0) 06/02/25 08:14
Plt Count 141 10^3/uL (130-400) 06/02/25 08:14
PT 14.4 Sec (11.4-14.6) 05/31/25 15:24
INR 1.09 05/31/25 15:24
APTT 25.0 Sec (23.4-35.0) 05/31/25 15:24
Sodium 139 mmol/L (135-145) 06/02/25 08:14
Potassium 4.7 mmol/L (3.5-5.1) 06/02/25 08:14
BUN 26 mg/dl (9-20) H 06/02/25 08:14
Creatinine 1.0 mg/dL (0.7-1.3) 06/02/25 08:14
Glucose 97 mg/dl (70-99) 06/02/25 08:14
Troponins
05/31/25 05/31/25 06/01/25
15:24 20:43 02:00
Troponin I 0.042 H* 0.051 H* 0.067 H* D
06/01/25 06/02/25
09:00 08:14
Troponin I 0.063 H* 0.066 H*
Vital Signs and I&O:
Vital Signs
Temp Pulse Resp BP Pulse Ox
98.2 F 60 18 109/68 93
06/02/25 08:11 06/02/25 08:33 06/02/25 08:11 06/02/25 08:33 06/02/25 08:11
Vital Signs
Temp Pulse Resp BP Pulse Ox
98.2 F 60 18 109/68 93
06/02/25 08:11 06/02/25 08:33 06/02/25 08:11 06/02/25 08:33 06/02/25 08:11
Intake & Output
05/31/25 06/01/25 06/02/25 06/03/25
06:59 06:59 06:59 06:59
Intake Total 960 / 960
Output Total 2800 / 2800 810 / 810
Balance -1840 / -1840 -810 / -810
Physical Exam
Physical Exam
GEN: No distress, awake, Ox3
HEENT: supple, anicteric, mmm
LUNGS: Mildly decreased at bases otherwise CTA, no wheezes/rales
CV: Reg, S1/S2, no murmur
ABD: soft, BS+, NT/ND
EXT: No edema, clubbing or cyanosis
NEURO: Gross non-focal
SKIN: No rash, warm, dry, pink
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
[2025-06-02 11:52] VITALS: BP 109/52
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
--- NOTE | 2025-06-02 15:01 | CM ---
Patient seen at bedside with physicians on . Patient now states he wants to go to SNF not geripsych and CM updated Psychiatrist. CM will send referrals awaiting LEVEL II assessment. CM will continue to follow for discharge planning needs.
Plan; SNF
[2025-06-02 15:22] VITALS: BP 96/57
[2025-06-02] MEDS: LIPITOR 40 MG PO (17:46)
[2025-06-02] MEDS: LASIX IV (18:11)
[2025-06-02 20:28] VITALS: BP 98/56
[2025-06-02] MEDS: MELATONIN 3 MG PO (22:47)
[2025-06-03] VITALS (8 sets, daily range): BP systolic 93–132; BP diastolic 49–64; PULSE 65; O2SAT 98; BMI 27.7
--- NOTE | 2025-06-03 01:01 | W.PN.UPDATE ---
Update Note
Progress Note Update
pt requesting to change code status to full code. pt aax3. will change per wishes
[2025-06-03] MEDS: SYNTHROID 100 MCG PO (06:38)
--- NOTE | 2025-06-03 07:17 | PTCARENOTE ---
Pt requesting to shower. 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 Pt stating, 'that's all you guys know to do is to not let me get out of bed.' Pt was offered to walk around room/
halls with RN on multiple occasions throughout the shift and pt stated, 'I know I should but I do not feel like it.' Pt provided with therapeutic communication, pt keeps insisting on having a shower stating, 'Once you leave I will start getting very
vocal in this room, that is what my father said to do when people do not listen to you.' Pt educated again on risks of showering and the need for an order. Pt states, 'my father also taught me to get the first swing in on someone too.' Pt educated
this was not an appropriate statement to make as we are only here to help him in a safe manner. Pt states, 'whatever I am already prepared for all these people to walk in this room today with their fake good mornings and how are you doings- I do not
want to talk anymore I want to be left alone.'
[2025-06-03 08:50] LABS: Hematocrit 41.1 % (39.0-52.0); Hemoglobin 13.9 g/dL (13.0-18.0); Mean Corp Hgb Conc. 33.8 g/dL (33.0-37.0); Mean Corpuscular Volume 95.1 fL (80.0-94.0); Nucleated Red Blood Cells % 0 % (-); Platelet Count 153 10^3/uL (130-400); Red Cell Dist. Width 12.0 % (11.5-14.5)
[2025-06-03] MEDS: FARXIGA 10 MG PO (09:52)
[2025-06-03] MEDS: TOPROL XL 25 MG PO (09:52)
[2025-06-03] MEDS: PACERONE 200 MG PO (09:52)
[2025-06-03] MEDS: VITAMIN B-12 1000 MCG PO (09:52)
[2025-06-03] MEDS: DEPAKOTE (12 HR RELEASE) 1000 MG PO ×2 (09:52→20:37)
[2025-06-03] MEDS: ASPIR LOW (ENTERIC COATED) 81 MG PO (09:52)
[2025-06-03] MEDS: MAG-TAB SR 84 MG PO ×2 (09:52→20:37)
[2025-06-03] MEDS: ELIQUIS 5 MG PO ×2 (09:53→20:37)
[2025-06-03] MEDS: ZOLOFT 25 MG PO (09:53)
[2025-06-03] MEDS: LASIX 40 MG IV (09:53)
[2025-06-03] MEDS: DULCOLAX 10 MG PO (09:59)
[2025-06-03] MEDS: MIRALAX 17 GRAMS PO (09:59)
--- NOTE | 2025-06-03 10:16 | W.PN.HOSP.TC ---
Addendum entered and electronically signed by Gisselle Subramanian MD 06/03/25 15:08:
I saw and evaluated the patient independently. I reviewed the resident�s note and agree with findings and plan as documented by Dr. Boateng.
GENERAL: well developed, well nourished, male in no apparent distress
HEENT: NC/AT--slight left facial droop, loss of nasolabial fold
HEART: regular rate and rhythm, +S1, +S2
LUNGS : clear to auscultation bilaterally
ABDOM: soft, nontender, nondistended, + bowel sounds
EXT: no cyanosis, clubbing, or edema
NEUROLOGIC: left sided weakness
Chest pain-- doubt ACS--EKG showed ventricular paced rhythm, no ST segment changes--trend troponin--apprec cards input--ECHO with reduced EF 25-30%- Continue aspirin, statin, metoprolol as BP allows--await cards re: changing to oral diuretics
Acute on chronic HFrEF-- Pro-BNP 6580 on presentation, no pulmonary congestion on CXR--Holding home torsemide�-cont IV Lasix 40 Mg twice daily� Continue GDMT therapy with SGLT2, metoprolol succinate 25 mg daily--daily weight, I/Os--await cards re:
changing to oral diuretics
Mechanical fall-- Occurred day prior to admit, positive head strike, landed on left side of body--CT scan/x-rays without acute issues--PT/OT --did too well for SNF
Presumed persistent? Atrial fibrillation with ventricular pacing- Continue home amiodarone, metoprolol- Continue Eliquis
Hypothyroidism� Continue levothyroxine� TSH WNL
Depression/anxiety- Continue sertraline, divalproex--apprec psych--no longer suicidal--1:1 stopped--psych recommending placement in geripsych unit if pt agreeable
Hyperlipidemia-Continue statin
COPD-Not in acute exacerbation-Continue home regimen
CODE STATUS-- DNR
DVT proph-- Eliquis
pt now agreeable to inpt psych
Original Note:
Today's Communication/Plan
-
Continue IV 40 mg Lasix twice daily, Toprol, Farxiga, Eliquis, amiodarone, and aspirin.
Cardiology following, awaiting transition from IV medications to PO.
Psychiatry following, possible inpatient psychiatry transfer.
Assessment / Plan
Assessment / Plan
69-year-old male with a past medical history of CVA with residual left-sided hemiparesis, atrial fibrillation with ventricular pacing, heart failure with reduced ejection fraction, hypothyroidism, COPD, depression and anxiety who presented with
chest pain. Patient had an episode of left-sided chest pain with associated shortness of breath, palpitations, lightheadedness, 1 episode of vomiting and cough. Patient had a fall 05/30/25 while walking back from the grocery store to his assisted
living facility ([facility]) where he landed on the left side of his body and had a possible head strike on the ground. The police were called but patient was not taken to the hospital as he endorsed feeling well. He expresses suicidal ideation
with plan of stepping into traffic, and states he 'cannot live without his girl' who he is unsure of how to contact/if she even wants him to contact.
Echo 06/01/2025:
SUMMARY
1. Dilated left ventricle with severe inferior, inferolateral inferolateral and anterolateral hypokinesis, EF 25-30%.
2. Thickened mitral leaflets with trace mitral regurgitation and dilated left atrium.
3. Aortic sclerosis without stenosis or regurgitation.
4. Normal right heart, pulmonary artery systolic pressure is probably normal.
ASSESSMENT/PLAN:
# Chest pain, resolving with diuresis
EKG showed ventricular paced rhythm, no ST segment changes
- Admitted to telemetry
- Troponin stabilized - 0.042, 0.051, 0.067, 0.063, 0.066.
- Serial EKG monitoring
- Continue aspirin, statin, metoprolol
- Cardiology consulted, recommended continuing IV diuresis with 40 mg Lasix twice daily, Toprol, Farxiga, Eliquis, amiodarone. Holding FREDIS/ARB due to hypotension.
- Awaiting cardiology to clear him for PO meds.
#Acute on chronic HFrEF
ProBNP 6580 on presentation, no pulmonary congestion on CXR. Cardiology following.
- Hold home torsemide
� Continue IV Lasix 40 Mg twice daily
� Continue GDMT therapy with SGLT2 and metoprolol succinate 25 mg daily
� Echo showed EF 25 to 30%
� Daily weights, I's and O's
� Trend BMP, monitor blood pressure
# Mechanical fall
- CT head without contrast: No acute intracranial hemorrhage or extra-axial collection.
- X-ray left shoulder and x-ray left hip/pelvis: No fracture or dislocation.
- PT recommended SNF placement.
#Atrial fibrillation with ventricular pacing
- Continue home amiodarone, metoprolol
- Continue Eliquis
#Hypothyroidism
� Continue levothyroxine
� Check TSH
#Depression/anxiety
#Intermittent explosive disorder
- Psych consulted and following
--Rec considering inpatient psychiatrist placement if he continues in depressive state. They also rec increasing Zoloft dose, although the patient does not want this.
- Continue sertraline, divalproex
- Admits suicidal ideation with a plan of stepping into traffic
#Hyperlipidemia
-Continue statin
#COPD
-Not in acute exacerbation
-Continue home regimen
CODE STATUS DNR
DVT prophylaxis: Eliquis
Anticipated Discharge: 24 - 48 hours
Subjective/Interval History
-
Date of Service: June 03, 2025
Patient states he feels the same as yesterday, no new complaints. He wants to change his CODE STATUS from DNR to full code. Patient also acknowledges that he will benefit from inpatient psychiatry and is agreeable to that if needed. Patient
adamant about not returning to [facility]. He denies suicidal ideation and states ' I have someone to live for.'
Objective Data
-
Labs:
Laboratory Results
08/13/25 08/13/25
08:06 08:07
WBC 8.7
Hgb 13.9
Hct 41.1
Plt Count 153
Sodium 139
Potassium 4.2
Chloride 103
Carbon Dioxide 29
BUN 29 H
Creatinine 1.0
Glucose 88
Calcium 9.2
Total Bilirubin 0.6
AST 19
ALT 15
Alkaline Phosphatase 60
Vital Signs:
Vital Signs
Temp Pulse Resp BP Pulse Ox
98 F 88 17 132/62 97
06/03/25 11:44 06/03/25 11:44 06/03/25 11:44 06/03/25 11:44 06/03/25 11:44
I&O
06/02/25 06/03/25 06/04/25
06:59 06:59 06:59
Intake Total 960 / 960 240 / 240
Output Total 2800 / 2800 2110 / 2110
Balance -1840 / -1840 -1870 / -1870
Review of Systems
-
History Source: Patient
Constitutional: Reports No Symptoms
EENT: Reports No Symptoms Reported
Cardiac: Reports No Symptoms
Abdomen/GI: Reports No Symptoms
Breast: Reports No Symptoms
Genitourinary: Reports No Symptoms
Musculoskeletal: Reports No Symptoms
Skin: Reports No Symptoms
Neuro: Reports No Symptoms
Endocrine: Reports No Symptoms
Hematologic / Lymphatic: Reports No Symptoms
Allergy / Immunology: Reports No Symptoms
Psych: Reports Depressed and Sad
Physical Exam
-
General: Well Developed, Well Nourished, No Apparent Distress, Comfortable and Conversant
HEENT: Normocephalic, Atraumatic, Moist Mucous Membranes and Anicteric
Respiratory: Clear to Auscultation
Cardiac: Regular Rhythm and S1/S2
GI: Soft, Nontender, Nondistended and Normal Bowel Sounds
Musculoskeletal: No Clubbing, No Cyanosis, Edema, Right Lower Extrem (1+ pitting) and Edema, Left Lower Extrem (1+ pitting)
Skin: Warm
Neuro: Awake and AO x 3
Psych: Calm and Depressed
Data Reviewed
-
Labs: Labs Reviewed by me and Discussed with Physician
Old Records: Reviewed
[2025-06-03 10:20] LABS: ALT (SGPT) 15 U/L (0-50); AST (SGOT) 19 U/L (17-59); Albumin 3.9 g/dl (3.5-5.0); Alkaline Phosphatase 60 U/L (38-126); Blood Urea Nitrogen 29 mg/dl (9-20); Calcium 9.2 mg/dl (8.4-10.2); Carbon Dioxide 29 mmol/L (22-30); Chloride 103 mmol/L (98-107); Estimated Creatinine Clearance 78 ml/min; Glucose 88 mg/dl (70-99); Magnesium 1.6 mg/dl (1.6-2.3); Potassium 4.2 mmol/L (3.5-5.1); Sodium 139 mmol/L (135-145); Total Protein 6.3 g/dl (6.3-8.2); eGFR > 60.00
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
--- NOTE | 2025-06-03 15:20 | W.PN.CARDCBS ---
Addendum entered and electronically signed by Renee Orlando DO 06/03/25 21:57:
I saw and examined the patient.
The Legal Biller's note was reviewed and I agree with the note.
Comment: Patient was seen and examined. Ambulating around room but overall difficult historian. He states that he is currently homeless and was out of his medications prior to this admission.
GEN: No distress, awake, Ox3
HEENT: supple, anicteric, mmm
LUNGS: CTA, no wheezes/rales
CV: Reg, S1/S2, no murmur
ABD: soft, BS+, NT/ND
EXT: No edema
Plan:
69-year-old gentleman with challenging social situation presents with chest pain/shortness of breath admitted with acute on chronic HFrEF while reportedly off of his medications
- Volume status is improving with IV Lasix and will transition to oral Lasix in the next 24-48 hours
- Monitor electrolytes: K greater than 4, mag greater than 2.
- Monitor renal function, creatinine currently stable at 1
- Patient had previously been on Entresto however financially unstable and reportedly homeless. Will start valsartan and can be transitioned to Entresto pending discharge plan
Mildly elevated troponin peaking at 0.067. Currently chest pain-free and suspected nonischemic myocardial injury in the setting of heart failure. Continue medical therapy
History of paroxysmal atrial fibrillation with no arrhythmias detected on device interrogation. Continue amiodarone and Eliquis. TSH within normal limits.
Appreciate involvement of case management and psychiatry
Original Note:
Today's Communication / Plan
-
Continue with IV diuresis today with consideration of transitioning to oral diuretic 06/04/2025
Replete magnesium
Add low dose valsartan
Continue amiodarone, Eliquis, Farxiga, Toprol
Impression / Plan
-
PCP: None
Hockey Instructor: Dr. Romero Zamora ([facility])
Impression:
Presented 05/31/2025 with chest pain, SOB, dizziness
Acute on chronic HFmrEF, proBNP 6580
Paroxysmal atrial fibrillation
Abnormal troponin, peaked at 0.067
Chronic Eliquis anticoagulation
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
Ischemic CM, EF previously 25%, improved to 40% by echo 01/2025, 25-30% on echo 06/10/2025
s/p [employer] CTR-D 08/01/2024
h/o recent CVA
HLD
Hypotension, on chronic midodrine
Hypothyroidism
Depression/anxiety
COPD
Ambulatory dysfunction
LHC 07/[address] [facility]': Severe diffuse coronary disease. TRIAL PARALEGAL of the mid LAD with severe diffuse disease of all branch vessels. Ramus intermedius contained a 95% stenosis in the mid vessel and the circumflex contained a 90% stenosis in mid
vessel. RCA was free of critical disease.
Echo July 2024 : EF 25% with mild to moderate MR. CMR showed EF of 19% with RV EF 25%. Both chambers dilated. Scar of apical and lateral wall with some variability.
Echo 01/25/2025 @ [facility]: EF 40%, moderate global hypokinesis mild , mild MAC, trace MR, mild TR
Echo 06/01/2025: EF 25 to 30%. LV cavity size 6.80. Inferior, inferolateral, lateral and anterolateral segments with severe hypokinesis. Mildly dilated left atrium. Aortic sclerosis without significant stenosis.
Plan:
-Presented 05/31/2025 with chest pain, SOB, and dizziness. Admitted with acute heart failure, proBNP 6580 and elevated troponin.
-Ongoing Diuresis with IV lasix 40mg BID. Would consider transitioning to oral Lasix within next 24 hours.
-Weight down to 204 lbs. Continue to follow daily weights, I&Os.
-Creat stable at 1.0 with slightly increasing bun 23->29
-Magnesium 1.6. Would replete
-Known history of ischemic cardiomyopathy with EF previously 25%, improved to 40% by echo 01/2025 now found to be reduced at 25 to 30% on echo this admission
-Continue medical therapy for heart failure and cardiomyopathy as BP allows. Continue Farxiga 10mg daily, metoprolol 25mg daily. Previously on Entresto, stopped as OP due to hypotension. Blood pressure remains soft this admission and would hold on
resuming at this time. Patient reports cost could also be an issue. Therefore would start patient on valsartan 40 mg with hold parameters.
-Has been maintained on midodrine as OP, not currently requiring.
-History of atrial fibrillation noted. No recent arrhythmia noted on device check in ER. Continue amiodarone 200mg daily and Eliquis
-Continue anticoagulation with Eliquis 5mg BID and aspirin 81mg daily due to h/o CAD and recent CVA by report.
-Elevated troponin noted, peaking at 0.067 and trending down thereafter. Suspect nonischemic myocardial injury in the setting of acute heart failure exacerbation.
-TSH within normal limits at 1.84.
-Patient admits to financially unstable and currently does not have anywhere to live. Case management and psych are aware of this. Ongoing discussion regarding having patient go to a voluntary psychiatric hospital upon discharge.
Outpatient cardiology records received reviewed
HPI: Nas is a 69 year old male with PMH of chronic HFrEF, paroxysmal atrial fibrillation, CAD, CM, SHREDDER PICKER-D, prior CVA, HLD, hypothyroidism, depression, anxiety, and COPD. He notes he was recently admitted at [place] and was discharged to
nursing facility where he has been residing. He states he has been under increased stress there and does not think he has been getting his usual cardiac medications. He then developed chest pain, shortness of breath, and dizziness, so EMS was called
and he was brought to [facility] ER. In ER, he was found to have evidence of acute heart failure with proBNP elevated at 6580. Also w/ elevated troponin. He was admitted for further workup and evaluation and cardiology consulted. He notes he is feeling
better from a chest pain/breathing standpoint. No recurrent chest pain noted. Breathing feels stable this AM. He continues to struggle with depression and becomes tearful at times during exam.
Progress Note - Hockey Instructor
Subjective
Date of Service: June 03, 2025
Patient seen and examined. Patient appears to be in better spirits today.
Objective
Labs:
06/03/25 08:07
06/03/25 08:06
Labs
Hgb 13.9 g/dL (13.0-18.0) 06/03/25 08:07
Hct 41.1 % (39.0-52.0) 06/03/25 08:07
Plt Count 153 10^3/uL (130-400) 06/03/25 08:07
PT 14.4 Sec (11.4-14.6) 05/31/25 15:24
INR 1.09 05/31/25 15:24
APTT 25.0 Sec (23.4-35.0) 05/31/25 15:24
Sodium 139 mmol/L (135-145) 06/03/25 08:06
Potassium 4.2 mmol/L (3.5-5.1) 06/03/25 08:06
BUN 29 mg/dl (9-20) H 06/03/25 08:06
Creatinine 1.0 mg/dL (0.7-1.3) 06/03/25 08:06
Glucose 88 mg/dl (70-99) 06/03/25 08:06
Troponins
05/31/25 05/31/25 06/01/25
15:24 20:43 02:00
Troponin I 0.042 H* 0.051 H* 0.067 H* D
06/01/25 06/02/25
09:00 08:14
Troponin I 0.063 H* 0.066 H*
Vital Signs and I&O:
Vital Signs
Temp Pulse Resp BP Pulse Ox
98 F 88 17 132/62 97
06/03/25 11:44 06/03/25 11:44 06/03/25 11:44 06/03/25 11:44 06/03/25 11:44
Vital Signs
Temp Pulse Resp BP Pulse Ox
98 F 88 17 132/62 97
06/03/25 11:44 06/03/25 11:44 06/03/25 11:44 06/03/25 11:44 06/03/25 11:44
Intake & Output
06/01/25 06/02/25 06/03/25 06/04/25
06:59 06:59 06:59 06:59
Intake Total 960 / 960 240 / 240
Output Total 2800 / 2800 2110 / 0
Balance -1840 / -1840 -0 / -0
Physical Exam
Physical Exam
GEN: No distress, awake, Ox3
HEENT: supple, anicteric, mmm
LUNGS: CTA, no wheezes/rales
CV: Reg, S1/S2, no murmur
ABD: soft, BS+, NT/ND
EXT: No edema, clubbing or cyanosis
NEURO: Gross non-focal
SKIN: No rash, warm, dry, pink
--- NOTE | 2025-06-03 16:23 | CM ---
Patient seen at bedside with physicians on . Patient states that he wants to go to Psych facility to assist with his depression. Patient did really well with therapy walking 70 feet with rolling walker and patient may not qualify for SNF. CM
will continue to follow for discharge planning needs.
Plan; Psych voluntary placement; CM will work to locate psych facility.
[2025-06-03] MEDS: LASIX IV (17:00)
[2025-06-03] MEDS: LIPITOR 40 MG PO (17:03)
[2025-06-03] MEDS: MAGNESIUM OXIDE 500 MG PO (17:03)
[2025-06-03] MEDS: MELATONIN 3 MG PO (22:14)
[2025-06-04] VITALS: BP 96/56
[2025-06-04 04:05] VITALS: BP 135/74
--- NOTE | 2025-06-04 04:05 | PTCARENOTE ---
Addendum entered by Steve Solorio RN 06/04/25 06:03:
Pt also refused AM Synthroid and daily weight. OIL PIPE INSPECTOR aware. No further orders.
Original Note:
PCT woke pt to take vitals. Pt told PCT, 'get out of my room, you keep waking me the fuck up, this is bullshit.' PCT informed RN. RN entered room to speak with pt, RN educated pt that the PCT is just doing his job and this is to safely ensure all of
his vital signs are stable as he is on a heart monitor and that these are the unit procedures we follow. Pt stated, 'I don't care get out of my room.' OIL PIPE INSPECTOR Di Hough on floor made aware. OIL PIPE INSPECTOR spoke to pt, pt stating 'this is bullshit, just do it
and get out of my room I don't want to speak to anyone stop giving me melatonin if you are just going to keep waking me the fuck up.' Vital signs taken.
[2025-06-04] MEDS: SYNTHROID PO (06:02)
[2025-06-04 07:42] VITALS: BP 108/56
[2025-06-04] MEDS: TOPROL XL 25 MG PO (07:54)
[2025-06-04] MEDS: FARXIGA 10 MG PO (07:54)
[2025-06-04] MEDS: ZOLOFT 50 MG PO (07:54)
[2025-06-04] MEDS: VITAMIN B-12 1000 MCG PO (07:55)
[2025-06-04] MEDS: ASPIR LOW (ENTERIC COATED) 81 MG PO (07:55)
[2025-06-04] MEDS: DEPAKOTE (12 HR RELEASE) 1000 MG PO ×2 (07:55→20:31)
[2025-06-04] MEDS: PACERONE 200 MG PO (07:56)
[2025-06-04] MEDS: LASIX 40 MG IV (07:56)
[2025-06-04] MEDS: MAG-TAB SR 84 MG PO ×2 (07:56→20:31)
[2025-06-04] MEDS: ELIQUIS 5 MG PO ×2 (07:56→20:32)
[2025-06-04 08:21] LABS: Hematocrit 45.3 % (39.0-52.0); Hemoglobin 15.3 g/dL (13.0-18.0); Mean Corp Hgb Conc. 33.8 g/dL (33.0-37.0); Mean Corpuscular Volume 94.6 fL (80.0-94.0); Nucleated Red Blood Cells % 0 % (-); Platelet Count 169 10^3/uL (130-400); Red Cell Dist. Width 12.1 % (11.5-14.5)
--- NOTE | 2025-06-04 08:42 | W.PN.HOSP.TC ---
Addendum entered and electronically signed by Gisselle Subramanian MD 06/04/25 16:21:
I saw and evaluated the patient independently. I reviewed the resident�s note and agree with findings and plan as documented by Dr. Boateng.
GENERAL: well developed, well nourished, male in no apparent distress
HEENT: NC/AT--slight left facial droop, loss of nasolabial fold
HEART: regular rate and rhythm, +S1, +S2
LUNGS : clear to auscultation bilaterally
ABDOM: soft, nontender, nondistended, + bowel sounds
EXT: no cyanosis, clubbing, or edema
NEUROLOGIC: left sided weakness
Chest pain-- doubt ACS--EKG showed ventricular paced rhythm, no ST segment changes--apprec cards input--ECHO with reduced EF 25-30%- Continue aspirin, statin, metoprolol as BP allows--apprec cards-- changing to oral diuretics asa BP tolerates
Acute on chronic HFrEF-- Pro-BNP 6580 on presentation, no pulmonary congestion on CXR--Holding home torsemide� Lasix to daily in AM� Continue GDMT therapy with SGLT2, metoprolol succinate 25mg cut to 12.5 mg due to hypotension--ARB stopped--daily
weight, I/Os
Mechanical fall-- Occurred day prior to admit, positive head strike, landed on left side of body--CT scan/x-rays without acute issues--PT/OT --did too well for SNF
Presumed persistent? Atrial fibrillation with ventricular pacing- Continue home amiodarone, metoprolol as BP allows- Continue Eliquis
Hypothyroidism� Continue levothyroxine� TSH WNL
Depression/anxiety- Continue sertraline, divalproex--apprec psych--no longer suicidal--1:1 stopped--psych recommending placement in geripsych unit if pt agreeable
Hyperlipidemia-Continue statin
COPD-Not in acute exacerbation-Continue home regimen
CODE STATUS-- DNR
DVT proph-- Eliquis
pt now agreeable to inpt psych
Original Note:
Today's Communication/Plan
-
Possible transition to PO Lasix today, Cardiology following.
Assessment / Plan
Assessment / Plan
69-year-old male with a past medical history of CVA with residual left-sided hemiparesis, atrial fibrillation with ventricular pacing, heart failure with reduced ejection fraction, hypothyroidism, COPD, depression and anxiety who presented with
chest pain. Patient had an episode of left-sided chest pain with associated shortness of breath, palpitations, lightheadedness, 1 episode of vomiting and cough. Patient had a fall 05/30/25 while walking back from the grocery store to his assisted
living facility ([facility]) where he landed on the left side of his body and had a possible head strike on the ground. The police were called but patient was not taken to the hospital as he endorsed feeling well. He expresses suicidal ideation
with plan of stepping into traffic, and states he 'cannot live without his girl' who he is unsure of how to contact/if she even wants him to contact.
Echo 06/01/2025:
SUMMARY
1. Dilated left ventricle with severe inferior, inferolateral inferolateral and anterolateral hypokinesis, EF 25-30%.
2. Thickened mitral leaflets with trace mitral regurgitation and dilated left atrium.
3. Aortic sclerosis without stenosis or regurgitation.
4. Normal right heart, pulmonary artery systolic pressure is probably normal.
ASSESSMENT/PLAN:
# Chest pain, resolving with diuresis
# Coronary artery disease
EKG showed ventricular paced rhythm, no ST segment changes
- Admitted to telemetry
- Trending troponin every 6 hours, 0.042, 0.051, 0.067, 0.063, 0.066.
- Cardiology consulted, rec continue IV diuresis with 40 mg Lasix twice daily, Toprol, Farxiga, Eliquis, amiodarone and aspirin. Added low dose valsartan
- Possible transition to PO Lasix today 06/04/25.
#Acute on chronic HFrEF
ProBNP 6580 on presentation, no pulmonary congestion on CXR. Cardiology following.
Repeat Echo showed EF 25 to 30%
- Hold home torsemide
� Continue IV Lasix 40 Mg twice daily, consider switching over to PO today 06/04/25
� Continue GDMT therapy with SGLT2, metoprolol succinate 25 mg daily
� Daily weights, I's and O's
� Trend BMP
� Monitor blood pressure, given patient's home use with midodrine
# Mechanical fall
- Occurred yesterday, positive head strike, landed on left side of body
- CT head without contrast: No acute intracranial hemorrhage or extra-axial collection.
- X-ray left shoulder and x-ray left hip/pelvis: No fracture or dislocation.
- PT recommend SNF placement
#Atrial fibrillation with ventricular pacing
- Continue home amiodarone, metoprolol
- Continue Eliquis
#Hypothyroidism
� Continue levothyroxine
� Check TSH
#Depression/anxiety
#Intermittent explosive disorder
- Psych consulted and following
--Rec considering inpatient psychiatrist placement if he continues in depressive state. They also rec increasing Zoloft dose, although the patient does not want this.
- Continue sertraline, divalproex
- Admits suicidal ideation with a plan of stepping into traffic
#Hyperlipidemia
-Continue statin
#COPD
-Not in acute exacerbation
-Continue home regimen
CODE STATUS: Full code
DVT prophylaxis: Eliquis
Anticipated Discharge: Within 24 hours
Subjective/Interval History
-
Date of Service: June 04, 2025
No new symptoms. Patient states he got mad at nurses overnight because 'they kept bugging him after giving melatonin' and the 'machine was too loud.' Patient expressing anger in regards to going to an inpatient psych facility as he 'does not have a
choice' since he does not want to return to [place].
Objective Data
-
Labs:
Laboratory Results
06/04/25 06/04/25
07:41 07:42
WBC 9.3
Hgb 15.3
Hct 45.3
Plt Count 169
Sodium Pending
Potassium Pending
Chloride Pending
Carbon Dioxide Pending
BUN Pending
Creatinine Pending
Glucose Pending
Calcium Pending
Total Bilirubin Pending
AST Pending
ALT Pending
Alkaline Phosphatase Pending
Vital Signs:
Vital Signs
Temp Pulse Resp BP Pulse Ox
97.3 F 68 18 135/74 96
06/04/25 00:00 06/04/25 04:05 06/04/25 00:00 06/04/25 04:05 06/04/25 04:05
I&O
06/03/25 06/04/25 06/05/25
06:59 06:59 06:59
Intake Total 240 / 240 1140 / 1140
Output Total 2110 / 2110 1225 / 1225
Balance -1870 / -1870 -85 / -85
Review of Systems
-
History Source: Patient
Constitutional: Reports No Symptoms
EENT: Reports No Symptoms Reported
Respiratory: Reports No Symptoms
Cardiac: Reports No Symptoms
Abdomen/GI: Reports No Symptoms
Breast: Reports No Symptoms
Genitourinary: Reports No Symptoms
Endocrine: Reports No Symptoms
Hematologic / Lymphatic: Reports No Symptoms
Allergy / Immunology: Reports No Symptoms
Physical Exam
-
General: Well Developed, Well Nourished, No Apparent Distress, Comfortable and Conversant
HEENT: Normocephalic, Atraumatic, Moist Mucous Membranes and Anicteric
Respiratory: Clear to Auscultation
Cardiac: Regular Rhythm and S1/S2
GI: Soft, Nontender, Nondistended and Normal Bowel Sounds
Musculoskeletal: No Clubbing, No Cyanosis, Edema, Right Lower Extrem and Edema, Left Lower Extrem
Skin: Warm and Dry
Neuro: Awake and AO x 3
Psych: Calm
Data Reviewed
-
Labs: Labs Reviewed by me and Discussed with Physician
Old Records: Reviewed
[2025-06-04 08:52] LABS: ALT (SGPT) 15 U/L (0-50); AST (SGOT) 20 U/L (17-59); Albumin 4.2 g/dl (3.5-5.0); Alkaline Phosphatase 60 U/L (38-126); Blood Urea Nitrogen 33 mg/dl (9-20); Calcium 9.6 mg/dl (8.4-10.2); Carbon Dioxide 32 mmol/L (22-30); Chloride 102 mmol/L (98-107); Estimated Creatinine Clearance 78 ml/min; Glucose 96 mg/dl (70-99); Magnesium 1.9 mg/dl (1.6-2.3); Potassium 4.5 mmol/L (3.5-5.1); Sodium 140 mmol/L (135-145); Total Protein 7.0 g/dl (6.3-8.2); eGFR > 60.00
[2025-06-04 09:57] LABS: Vitamin D, 25-OH*** 43.4 ng/mL (30-80)
--- NOTE | 2025-06-04 10:44 | W.PN.CARDCBS ---
Addendum entered and electronically signed by Robert Damico MD 06/04/25 20:03:
69-year-old man admitted on May 31 with acute on chronic heart failure with mildly reduced EF
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
hyperlipidemia, hypotension on midodrine, hypothyroidism, depression/anxiety, COPD, activities of daily living dysfunction
SH: Single unstable living situation
Current medications: Albuterol, amiodarone 200 daily, apixaban 5 mg twice daily, aspirin 81 mg a day, atorvastatin 40 mg a day, vitamin B12, Depakote, levothyroxine, dapagliflozin 10 mg a day, magnesium, sertraline, furosemide 40 mg a day,
metoprolol ER 12.5 daily
85/54, pulse 61, respiratory rate 18, afebrile, head neck exam unremarkable, lungs are clear, regular rate and rhythm, no obvious murmurs, edema substantially improved.
Hemoglobin 15.3, platelets 169, BUN/creatinine 33 and 1.0, potassium 4.5
Impression:
As below per TS. Reviewed in detail and agree, unless otherwise specified
Plan:
He appears euvolemic and comfortable at present. Major issues are stability of living environment, access to medications, etc.
Blood pressure is relatively low, but medical regimen is reasonable.
Optimization of GDMT will be difficult in light of his hypotension. Valsartan has been stopped.
.
Currently he is in sinus rhythm. He has an ICD in place.
Okay to proceed with discharge planning.
Original Note:
Today's Communication / Plan
-
Will transition to PO lasix 40mg daily
Stop valsartan as has been unable to receive due to hypotension.
Will continue Farxiga and Toprol alone for medical therapy
Continue aspirin, Eliquis
Continue amiodarone
Follow up with primary protective signal installer.
Impression / Plan
-
PCP: None
Remote Sensing Surveyor: Dr. Romero Zamora ([facility])
Impression:
Presented 05/31/2025 with chest pain, SOB, dizziness
Acute on chronic HFmrEF, proBNP 6580
Abnormal troponin, peaked at 0.067
Paroxysmal atrial fibrillation
Chronic Eliquis anticoagulation
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 07/2024, medically managed
Ischemic CM, EF previously 25%, improved to 40% by echo 01/2025, 25-30% on echo 06/10/2025
s/p [employer] CTR-D 08/01/2024
h/o recent CVA
HLD
Hypotension, on chronic midodrine
Hypothyroidism
Depression/anxiety
COPD
Ambulatory dysfunction
LHC 07/[address] [facility]: Severe diffuse coronary disease. ADVERTISING SPECIALIST of the mid LAD with severe diffuse disease of all branch vessels. Ramus intermedius contained a 95% stenosis in the mid vessel and the circumflex contained a 90% stenosis in mid
vessel. RCA was free of critical disease.
Echo 07/[address] [facility]: EF 25% with mild to moderate MR. CMR showed EF of 19% with RV EF 25%. Both chambers dilated. Scar of apical and lateral wall with some variability.
Echo 01/25/[address] @ [facility]: EF 40%, moderate global hypokinesis mild , mild MAC, trace MR, mild TR
Echo 06/01/2025: EF 25 to 30%. LV cavity size 6.80. Inferior, inferolateral, lateral and anterolateral segments with severe hypokinesis. Mildly dilated left atrium. Aortic sclerosis without significant stenosis.
Plan:
-Presented with chest pain, SOB, and dizziness. Admitted with acute heart failure and elevated troponin.
-Diuresed this admission with IV lasix 40mg BID, but has only been getting daily doses due to hypotension. Weight down to 204 lbs on 06/03. No weight 06/04.
-Creat stable at 1.0, but BUN increasing to 33. Will plan to transition to PO lasix 40mg daily. Check BMP in 1 week. Previously was maintained on torsemide 40mg daily as OP.
-Echo 06/01 shows EF back down to 25-30% as noted above. Continue medical therapy as BP allows.
-Currently ordered Valsartan 40mg daily, Farxiga 10mg daily, and Toprol 25mg daily, but valsartan unable to be given due to hypotension.
-Previously required midodrine as OP, however has not been receiving this admission. Will stop valsartan and can consider resuming as OP.
-h/o afib noted. No recent arrhythmia noted on device check in ER. Continue amiodarone 200mg daily.
-Continue anticoagulation with Eliquis 5mg BID and aspirin 81mg daily.
-Elevated troponin noted this admission, peaking at 0.067 and trending down thereafter. Managing as nonischemic myocardial injury in the setting of acute heart failure.
-Psych following and plan is for voluntary psychiatric hospital admission at discharge.
-Follow up with primary protective signal installer, Dr. Zamora, after discharge.
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 He notes he was recently admitted at [facility] and was discharged to
nursing facility where he has been residing. He states he has been under increased stress there and does not think he has been getting his usual cardiac medications. He then developed chest pain, shortness of breath, and dizziness, so EMS was called
and he was brought to [facility] ER. In ER, he was found to have evidence of acute heart failure with proBNP elevated at 6580. Also w/ elevated troponin. He was admitted for further workup and evaluation and cardiology consulted. He notes he is feeling
better from a chest pain/breathing standpoint. No recurrent chest pain noted. Breathing feels stable this AM. He continues to struggle with depression and becomes tearful at times during exam.
Progress Note - Remote Sensing Surveyor
Subjective
Date of Service: June 04, 2025
No active cardiac complaints at this time.
Objective
Labs:
06/04/25 07:41
06/04/25 07:42
Labs
Hgb 15.3 g/dL (13.0-18.0) 06/04/25 07:41
Hct 45.3 % (39.0-52.0) 06/04/25 07:41
Plt Count 169 10^3/uL (130-400) 06/04/25 07:41
PT 14.4 Sec (11.4-14.6) 05/31/25 15:24
INR 1.09 05/31/25 15:24
APTT 25.0 Sec (23.4-35.0) 05/31/25 15:24
Sodium 140 mmol/L (135-145) 06/04/25 07:42
Potassium 4.5 mmol/L (3.5-5.1) 06/04/25 07:42
BUN 33 mg/dl (9-20) H 06/04/25 07:42
Creatinine 1.0 mg/dL (0.7-1.3) 06/04/25 07:42
Glucose 96 mg/dl (70-99) 06/04/25 07:42
Troponins
06/02/25
08:14
Troponin I 0.066 H*
Vital Signs and I&O:
Vital Signs
Temp Pulse Resp BP Pulse Ox
97.3 F 62 18 108/56 94
06/04/25 07:42 06/04/25 07:42 06/04/25 07:42 06/04/25 07:42 06/04/25 07:42
Vital Signs
Temp Pulse Resp BP Pulse Ox
97.3 F 62 18 108/56 94
06/04/25 07:42 06/04/25 07:42 06/04/25 07:42 06/04/25 07:42 06/04/25 07:42
Intake & Output
06/02/25 06/03/25 06/04/25 06/05/25
06:59 06:59 06:59 06:59
Intake Total 960 / 960 240 / 240 1140 / 1140
Output Total 2800 / 2800 2110 / 2110 1225 / 1225
Balance -1840 / -1840 -1870 / -1870 - / -
Physical Exam
Physical Exam
GEN: No distress, awake, oriented x3
HEENT: supple, anicteric, mmm
LUNGS: CTA b/l, no wheezes/rales
CV: Reg, S1/S2, no murmur
EXT: No edema, clubbing or cyanosis
NEURO: Gross non-focal
SKIN: No rash, warm, dry, pink
[2025-06-04 10:46] LABS: Folate 12.4 ng/ml (2.76-20); Vitamin B12 983 pg/ml (239-931)
[2025-06-04 11:22] VITALS: BP 83/44
--- NOTE | 2025-06-04 11:54 | W.PN.UPDATE ---
Update Note
Progress Note Update
patient seen chart reviewed. discussed with nursing dr mendez and ryan . the patient is depressed that is clear. it is hard for him to think of much other than how others have wronged him. he does eventually admit that he did things wrong to
over the years but is very helpless and hopeless of putting his life back together again. he does agree to in pt psych hospitalization at this point although has vacillated a lot. he seems to get frustrated with what is happening or not happening
for him then wants to throw in the towel. discussed finding a psych bed for him with [facility]. afternward if he went to [facility] he could get a cm who could help him with his psychosocial issues. just increase zoloft too soon for improvement. also taking
depakote. b12 folate vit d are okay. will continue to follow
--- NOTE | 2025-06-04 14:10 | CM ---
Addendum entered by Rebecca Bojorquez 06/04/25 16:38:
referrals faxed to [facility], [facility] and [facility] in [place]. awaiting call back from facilities. CM called to patient 'friend' Katelyn Snow, she stated that she moved back to [place] and she is not
able to help patient at this time. CM will update patient and continue to send referrals.
Original Note:
Patient seen at bedside with physicians on . Patient now willing for CM to make placements to psych facility, Psychiatrist in agreement with follow up to [facility] following to assist with housing. CM will call to personal care to confirm
ability for patient to return. CM will continue to follow for discharge planning needs.
Plan; psych for treatment; voluntary
[2025-06-04 15:15] VITALS: BP 85/54
[2025-06-04] MEDS: LIPITOR 40 MG PO (16:52)
[2025-06-04 17:02] VITALS: BP 109/55
[2025-06-04] MEDS: MIRALAX 17 GRAMS PO (17:59)
[2025-06-04] MEDS: MELATONIN PO (21:56)
[2025-06-05] MEDS: SYNTHROID PO (06:42)
[2025-06-05 08:31] LABS: Hematocrit 42.2 % (39.0-52.0); Hemoglobin 14.3 g/dL (13.0-18.0); Mean Corp Hgb Conc. 33.9 g/dL (33.0-37.0); Mean Corpuscular Volume 95.3 fL (80.0-94.0); Nucleated Red Blood Cells % 0 % (-); Platelet Count 151 10^3/uL (130-400); Red Cell Dist. Width 12.0 % (11.5-14.5)
[2025-06-05 09:14] LABS: ALT (SGPT) 14 U/L (0-50); AST (SGOT) 18 U/L (17-59); Albumin 3.9 g/dl (3.5-5.0); Alkaline Phosphatase 62 U/L (38-126); Blood Urea Nitrogen 34 mg/dl (9-20); Calcium 9.6 mg/dl (8.4-10.2); Carbon Dioxide 31 mmol/L (22-30); Chloride 102 mmol/L (98-107); Estimated Creatinine Clearance 78 ml/min; Glucose 93 mg/dl (70-99); Magnesium 1.8 mg/dl (1.6-2.3); Potassium 4.4 mmol/L (3.5-5.1); Sodium 139 mmol/L (135-145); Total Protein 6.4 g/dl (6.3-8.2); eGFR > 60.00
[2025-06-05 09:45] VITALS: BP 109/58
[2025-06-05] MEDS: ASPIR LOW (ENTERIC COATED) 81 MG PO (09:52)
[2025-06-05] MEDS: LASIX 40 MG PO (09:52)
[2025-06-05] MEDS: FARXIGA 10 MG PO (09:52)
[2025-06-05] MEDS: MAG-TAB SR 84 MG PO ×2 (09:52→20:28)
[2025-06-05] MEDS: PACERONE 200 MG PO (09:53)
[2025-06-05] MEDS: ZOLOFT 50 MG PO (09:53)
[2025-06-05] MEDS: TOPROL XL 12.5 MG PO (09:53)
[2025-06-05] MEDS: DEPAKOTE (12 HR RELEASE) 1000 MG PO ×2 (09:53→20:30)
[2025-06-05] MEDS: ELIQUIS 5 MG PO ×2 (09:53→20:28)
[2025-06-05] MEDS: VITAMIN B-12 1000 MCG PO (09:54)
--- NOTE | 2025-06-05 10:19 | W.PN.HOSP.TC ---
Addendum entered and electronically signed by Gisselle Subramanian MD 06/05/25 20:16:
I saw and evaluated the patient independently. I reviewed the resident�s note and agree with findings and plan as documented by Dr. Boateng.
GENERAL: well developed, well nourished, male in no apparent distress
HEENT: NC/AT--slight left facial droop, loss of nasolabial fold
HEART: regular rate and rhythm, +S1, +S2
LUNGS : clear to auscultation bilaterally
ABDOM: soft, nontender, nondistended, + bowel sounds
EXT: no cyanosis, clubbing, or edema
NEUROLOGIC: left sided weakness
Chest pain--not ACS--EKG showed ventricular paced rhythm, no ST segment changes--apprec cards input--ECHO with reduced EF 25-30%- Continue aspirin, statin, metoprolol as BP allows--apprec cards-- changing to oral diuretics as BP tolerates
Acute on chronic HFrEF-- Pro-BNP 6580 on presentation, no pulmonary congestion on CXR--Holding home torsemide� Lasix to oral daily in AM� Continue GDMT therapy with SGLT2, metoprolol succinate 25mg cut to 12.5 mg due to hypotension--ARB
stopped--daily weight, I/Os
Mechanical fall-- Occurred day prior to admit, positive head strike, landed on left side of body--CT scan/x-rays without acute issues--PT/OT --did too well for SNF
Presumed persistent? Atrial fibrillation with ventricular pacing- Continue home amiodarone, metoprolol as BP allows- Continue Eliquis
Hypothyroidism� Continue levothyroxine� TSH WNL
Depression/anxiety- Continue sertraline, divalproex--apprec psych--no longer suicidal--1:1 stopped--psych recommending placement in geripsych unit if pt agreeable
Hyperlipidemia-Continue statin
COPD-Not in acute exacerbation-Continue home regimen
CODE STATUS-- DNR
DVT proph-- Eliquis
pt now agreeable to inpt psych
Original Note:
Today's Communication/Plan
-
transition from IV to PO Lasix 40 mg daily
Medically cleared for inpatient psych placement, CM following.
Switched to 4 g sodium diet.
Assessment / Plan
Assessment / Plan
69-year-old male with a past medical history of CVA with residual left-sided hemiparesis, atrial fibrillation with ventricular pacing, heart failure with reduced ejection fraction, hypothyroidism, COPD, depression and anxiety who presented with
chest pain. Patient had an episode of left-sided chest pain with associated shortness of breath, palpitations, lightheadedness, 1 episode of vomiting and cough. Patient had a fall 05/30/25 while walking back from the grocery store to his assisted
living facility ([facility]) where he landed on the left side of his body and had a possible head strike on the ground. The police were called but patient was not taken to the hospital as he endorsed feeling well. He expresses suicidal ideation
with plan of stepping into traffic, and states he 'cannot live without his girl' who he is unsure of how to contact/if she even wants him to contact.
Echo 06/01/2025:
SUMMARY
1. Dilated left ventricle with severe inferior, inferolateral inferolateral and anterolateral hypokinesis, EF 25-30%.
2. Thickened mitral leaflets with trace mitral regurgitation and dilated left atrium.
3. Aortic sclerosis without stenosis or regurgitation.
4. Normal right heart, pulmonary artery systolic pressure is probably normal.
ASSESSMENT/PLAN:
# Chest pain, resolving with diuresis
# Coronary artery disease
EKG showed ventricular paced rhythm, no ST segment changes
- Admitted to telemetry
- Trending troponin every 6 hours, 0.042, 0.051, 0.067, 0.063, 0.066.
- Cardiology consulted, rec PO lasix 40 mg daily starting today 06/05/25, Toprol, Farxiga, Eliquis, amiodarone and aspirin. Valsartan discontinued due to hypotension.
- Switch diet from 2 g to 4 g sodium.
#Homicidal ideation
#Depression/anxiety
#Intermittent explosive disorder
- Patient stating he wants to kill his brother in law after finding out his friend Elmira has been unable to contact him, and thinks his brother law has been hiding her calls/voicemails from him.
- He is upset that we called her and said 'nobody asked for my permission.' Patient gave her number a few days ago when asked if we
- Consulted Psychiatry. Psych states plan is to 'get him into a psych facility then dc to a treatment center where he can get a porter sample case to help him find a place.'
- Continue Zoloft 50 mg, increased recently from 25 mg.
#Acute on chronic HFrEF
ProBNP 6580 on presentation, no pulmonary congestion on CXR. Cardiology following.
Repeat Echo showed EF 25 to 30%
� Switch over to PO Lasix 40 mg daily today 06/05/25
� Continue GDMT therapy with SGLT2, metoprolol succinate 12.5 mg daily
� Daily weights, I's and O's
� Trend BMP
� Monitor blood pressure, given patient's home use with midodrine
# Mechanical fall
- Occurred yesterday, positive head strike, landed on left side of body
- CT head without contrast: No acute intracranial hemorrhage or extra-axial collection.
- X-ray left shoulder and x-ray left hip/pelvis: No fracture or dislocation.
- PT recommend SNF placement
#Atrial fibrillation with ventricular pacing
- Continue home amiodarone, metoprolol 12.5 mg
- Continue Eliquis
#Hypothyroidism
� Continue levothyroxine
� Check TSH
#Hyperlipidemia
-Continue statin
#COPD
-Not in acute exacerbation
-Continue home regimen
CODE STATUS: Full code
DVT prophylaxis: Eliquis
Anticipated Discharge: Within 24 hours
Subjective/Interval History
-
Date of Service: June 05, 2025
Patient states he does not want to be here - wants to be 'possibly on another planet.' Patient informed that we were able to get in contact with his special friend Elmira, and that she has moved to [place]. Patient expressed that he is upset
that we called her without his permission, despite having permission from him earlier in the week. Elmira said she has been trying to get in contact with him, and patient thinks his brother law is the reason she has been unable to. Patient states 'if
you don't let me out of here, I will sign the papers and go kill my brother in law.' Patient also states 'you can check my background record, I am capable of all of this.' Expresses that he refuses to eat anything as he was denied pickles on his
hamburger.
Objective Data
-
Labs:
Laboratory Results
06/05/25
07:55
WBC 8.4
Hgb 14.3
Hct 42.2
Plt Count 151
Sodium 139
Potassium 4.4
Chloride 102
Carbon Dioxide 31 H
BUN 34 H
Creatinine 1.0
Glucose 93
Calcium 9.6
Total Bilirubin 0.7
AST 18
ALT 14
Alkaline Phosphatase 62
Vital Signs:
Vital Signs
Temp Pulse Resp BP Pulse Ox
97.8 F 62 22 109/58 97
06/05/25 09:45 06/05/25 09:45 06/05/25 09:45 06/05/25 09:45 06/05/25 09:45
I&O
06/04/25 06/05/25 06/06/25
06:59 06:59 06:59
Intake Total 1140 / 1140 240 / 240
Output Total 1225 / 1225 400 / 400
Balance -85 / -85 -160 / -160
Review of Systems
-
History Source: Patient
Constitutional: Reports No Symptoms
EENT: Reports No Symptoms Reported
Respiratory: Reports No Symptoms
Cardiac: Reports No Symptoms
Abdomen/GI: Reports No Symptoms
Breast: Reports No Symptoms
Genitourinary: Reports No Symptoms
Musculoskeletal: Reports No Symptoms
Skin: Reports No Symptoms
Neuro: Reports No Symptoms
Endocrine: Reports No Symptoms
Hematologic / Lymphatic: Reports No Symptoms
Physical Exam
-
General: Well Developed, Well Nourished, No Apparent Distress and Comfortable
HEENT: Normocephalic, Atraumatic, Moist Mucous Membranes and Anicteric
Respiratory: Clear to Auscultation
Cardiac: Regular Rhythm and S1/S2
GI: Soft, Nontender, Nondistended and Normal Bowel Sounds
Musculoskeletal: No Clubbing, No Cyanosis, No Edema, Edema, Right Lower Extrem and Edema, Left Lower Extrem
Neuro: Awake and AO x 3
Psych: Agitated and Other (Homicidal ideation)
Data Reviewed
-
Labs: Labs Reviewed by me and Discussed with Physician
Old Records: Reviewed
--- NOTE | 2025-06-05 11:13 | W.PN.CARDCBS ---
Addendum entered and electronically signed by Renee Orlando DO 06/05/25 17:36:
I saw and examined the patient.
The Beadworker's note was reviewed and I agree with the note.
Comment: Chart/studies reviewed. No new complaints.
GEN: No distress, awake, Ox3
HEENT: supple, anicteric, mmm
LUNGS: CTA, no wheezes/rales
CV: Reg, S1/S2, no murmur
ABD: soft, BS+, NT/ND
EXT: No edema
Plan:
69-year-old gentleman with challenging social situation presents with chest pain/shortness of breath admitted with acute on chronic HFrEF while reportedly off of his medications
-He appears euvolemic and comfortable.
Continue current medical regimen which is limited by hypertension as well as unstable living environment/access to medications: Metoprolol XL 12.5 mg daily, Lasix 40 mg daily, Farxiga 10 mg daily, aspirin 81 mg daily, Eliquis 5 mg twice daily,
amiodarone 200 mg daily, atorvastatin 40 mg daily. Patient did not tolerate ARB.
-He is currently in sinus rhythm. He has an ICD which is functioning normally.
Major issue related to psychiatric conditions and social instability.
Will sign off, recall if needed
Original Note:
Today's Communication / Plan
-
Continue PO Lasix
Continue Toprol, Farxiga
Continue Amiodarone
Continue Eliquis, aspirin
Follow up w/ primary sewing machine operator semiautomatic
Impression / Plan
-
PCP: None
Street Railway Line Installer: Dr. Romero Zamora ([facility])
Impression:
Presented 05/31/2025 with chest pain, SOB, dizziness
Acute on chronic HFmrEF, proBNP 6580
Abnormal troponin, peaked at 0.067
Paroxysmal atrial fibrillation
Chronic Eliquis anticoagulation
Multivessel CAD by prior cath at [facility] 07/2024, medically managed
Ischemic CM, EF previously 25%, improved to 40% by echo 01/2025, 25-30% on echo 06/10/2025
s/p [employer] CTR-D 08/01/2024
h/o recent CVA
HLD
Hypotension, on chronic midodrine
Hypothyroidism
Depression/anxiety
COPD
Ambulatory dysfunction
LHC 07/2024 at [facility]: Severe diffuse coronary disease. TRAIN CONTROL TECHNICIAN of the mid LAD with severe diffuse disease of all branch vessels. Ramus intermedius contained a 95% stenosis in the mid vessel and the circumflex contained a 90% stenosis in mid
vessel. RCA was free of critical disease.
Echo 07/2024 @ [facility]: EF 25% with mild to moderate MR. CMR showed EF of 19% with RV EF 25%. Both chambers dilated. Scar of apical and lateral wall with some variability.
Echo 01/25/2025 @ [facility]: EF 40%, moderate global hypokinesis mild , mild MAC, trace MR, mild TR
Echo 06/01/2025: EF 25 to 30%. LV cavity size 6.80. Inferior, inferolateral, lateral and anterolateral segments with severe hypokinesis. Mildly dilated left atrium. Aortic sclerosis without significant stenosis.
Plan:
-Presented with chest pain, SOB, and dizziness. Admitted with acute heart failure and elevated troponin.
-Diuresed with IV Lasix this admission. Weight down to 204 lbs 06/03, no recent weights since then.
-Now on PO lasix 40mg daily, would continue at discharge. Check BMP in 1 week.
-Echo 06/01 shows EF back down to 25 to 30% as noted above. Medical therapy has been limited by hypotension.
-Continue Farxiga and low-dose Toprol. Continue attempts at uptitration as outpatient as BP allows
-h/o afib noted. No recent arrhythmia noted on device check in ER. Continue amiodarone 200mg daily.
-Continue anticoagulation with Eliquis 5mg BID and aspirin 81mg daily.
-Elevated troponin noted this admission, peaking at 0.067 and trending down thereafter. Managing as nonischemic myocardial injury in the setting of acute heart failure.
-Psych following and plan is for voluntary psychiatric hospital admission at discharge.
-Follow up with primary sewing machine operator semiautomatic, Dr. Zamora, after discharge.
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 He notes he was recently admitted at [facility] and was discharged to
nursing facility where he has been residing. He states he has been under increased stress there and does not think he has been getting his usual cardiac medications. He then developed chest pain, shortness of breath, and dizziness, so EMS was called
and he was brought to [facility] ER. In ER, he was found to have evidence of acute heart failure with proBNP elevated at 6580. Also w/ elevated troponin. He was admitted for further workup and evaluation and cardiology consulted. He notes he is feeling
better from a chest pain/breathing standpoint. No recurrent chest pain noted. Breathing feels stable this AM. He continues to struggle with depression and becomes tearful at times during exam.
Progress Note - Street Railway Line Installer
Subjective
Date of Service: June 05, 2025
No current cardiac complaints
Objective
Labs:
06/05/25 07:55
06/05/25 07:55
Labs
Hgb 14.3 g/dL (13.0-18.0) 06/05/25 07:55
Hct 42.2 % (39.0-52.0) 06/05/25 07:55
Plt Count 151 10^3/uL (130-400) 06/05/25 07:55
PT 14.4 Sec (11.4-14.6) 05/31/25 15:24
INR 1.09 05/31/25 15:24
APTT 25.0 Sec (23.4-35.0) 05/31/25 15:24
Sodium 139 mmol/L (135-145) 06/05/25 07:55
Potassium 4.4 mmol/L (3.5-5.1) 06/05/25 07:55
BUN 34 mg/dl (9-20) H 06/05/25 07:55
Creatinine 1.0 mg/dL (0.7-1.3) 06/05/25 07:55
Glucose 93 mg/dl (70-99) 06/05/25 07:55
Vital Signs and I&O:
Vital Signs
Temp Pulse Resp BP Pulse Ox
97.8 F 62 22 109/58 97
06/05/25 09:45 06/05/25 09:45 06/05/25 09:45 06/05/25 09:45 06/05/25 09:45
Vital Signs
Temp Pulse Resp BP Pulse Ox
97.8 F 62 22 109/58 97
06/05/25 09:45 06/05/25 09:45 06/05/25 09:45 06/05/25 09:45 06/05/25 09:45
Intake & Output
06/03/25 06/04/25 06/05/25 06/06/25
06:59 06:59 06:59 06:59
Intake Total 240 / 240 1140 / 1140 240 / 240
Output Total 2110 / 2110 1225 / 1225 400 / 400
Balance -1870 / -1870 -85 / -85 -160 / -160
Physical Exam
Physical Exam
GEN: No distress, awake, alert, oriented x3
HEENT: supple, anicteric, mmm
LUNGS: CTA b/l, no wheezes/rales
CV: Reg, S1/S2, no murmur
EXT: No edema, clubbing or cyanosis
NEURO: Gross non-focal
SKIN: No rash, warm, dry, pink
[2025-06-05] MEDS: DULCOLAX 10 MG PO (13:47)
[2025-06-05 15:00] VITALS: BP 106/61
--- NOTE | 2025-06-05 15:05 | W.PN.UPDATE ---
Update Note
Progress Note Update
patient seen chart reviewed. spoke with nursing, case mgrs ms ryan and ms sonia as well as nursing. patient continues much the same. he was initially incensed that staff had called the woman he refers to as his gf. staff tells me that he had
actually requested it. he has since cooled down. he does espouse the belief that someday he and she will be together. his goal is to go eventually to [place] to be with her but says he would not go unless she told him that is what she wanted. he is at
this point still seriously considering going to a psych hospital to get a handle on his depression and his anger. he spoke of how much his anger has ruled his life from his early teen years to just a few years back. he has not been acting out
aggressively in the last several years but it is hard for him. we discussed using abilify to help him manage his emotional swings. side effects risks vs aditya discussed and he agreed to begin 2 mg q hs along w zoloft. cm will continue to try to find
a psych hospital which will accept him. psych will look in on him during the weekend.
--- NOTE | 2025-06-05 16:30 | CM ---
Addendum entered by Rebecca Bojorquez 06/05/25 17:51:
additional referrals made to [facility] via fax.
Original Note:
Patient seen at bedside with physicians on . Patient to talk to psych and continue to explore options for placement at psych facility with 202. Patient in agreement with plan at this time. CM will continue to send referrals and look for
available bed. CM will continue to follow for discharge planning needs.
Plan; psych placement; pending acceptance
[2025-06-05] MEDS: LIPITOR 40 MG PO (17:59)
[2025-06-05] MEDS: ABILIFY 2 MG PO (20:28)
[2025-06-05] MEDS: MELATONIN 3 MG PO (22:02)
[2025-06-06 06:00] VITALS: BMI 27.8
[2025-06-06 07:00] VITALS: BP 108/57
[2025-06-06 07:49] LABS: Hematocrit 40.8 % (39.0-52.0); Hemoglobin 13.7 g/dL (13.0-18.0); Mean Corp Hgb Conc. 33.6 g/dL (33.0-37.0); Mean Corpuscular Volume 94.2 fL (80.0-94.0); Nucleated Red Blood Cells % 0 % (-); Platelet Count 158 10^3/uL (130-400); Red Cell Dist. Width 12.1 % (11.5-14.5)
[2025-06-06 08:19] LABS: ALT (SGPT) 13 U/L (0-50); AST (SGOT) 18 U/L (17-59); Albumin 3.6 g/dl (3.5-5.0); Alkaline Phosphatase 57 U/L (38-126); Blood Urea Nitrogen 35 mg/dl (9-20); Calcium 9.0 mg/dl (8.4-10.2); Carbon Dioxide 31 mmol/L (22-30); Chloride 103 mmol/L (98-107); Estimated Creatinine Clearance 71 ml/min; Glucose 84 mg/dl (70-99); Magnesium 1.7 mg/dl (1.6-2.3); Potassium 4.4 mmol/L (3.5-5.1); Sodium 139 mmol/L (135-145); Total Protein 6.0 g/dl (6.3-8.2); eGFR > 60.00
[2025-06-06] MEDS: DEPAKOTE (12 HR RELEASE) 1000 MG PO ×2 (09:10→19:40)
[2025-06-06] MEDS: PACERONE 200 MG PO (09:10)
[2025-06-06] MEDS: ELIQUIS 5 MG PO ×2 (09:10→19:40)
[2025-06-06] MEDS: ASPIR LOW (ENTERIC COATED) 81 MG PO (09:10)
[2025-06-06] MEDS: LASIX 40 MG PO (09:10)
[2025-06-06] MEDS: MAG-TAB SR 84 MG PO ×2 (09:10→19:39)
[2025-06-06] MEDS: SYNTHROID 100 MCG PO (09:10)
[2025-06-06] MEDS: FARXIGA 10 MG PO (09:10)
[2025-06-06] MEDS: ZOLOFT 50 MG PO (09:11)
[2025-06-06] MEDS: TOPROL XL 12.5 MG PO (09:11)
[2025-06-06] MEDS: VITAMIN B-12 PO (09:13)
--- NOTE | 2025-06-06 10:02 | W.PN.UPDATE ---
Update Note
Progress Note Update
Pt seen, resting in bed watching TV, alert, calm. Pt overall appears unchanged in mood- depressed, feels hopeless, with underlying anger at the general system of health care and housing. Pt continues to report passive wish to be , but denies
intent to act here. Zoloft increased to 50 mg daily on 06/04, Abilify 2 mg daily added yesterday 06/05. Pt reports some constipation and nausea, tolerable at this point. Pt feels better about being able to get out of bed to the bathroom, was able
to shave. Pt states they were able to reach his 'girl', reports she is in the hospital, may be moving back to [place]; states he is not sure she feels the same attachment that he feels. Affect remains somewhat flat; pt states his curent problems all
started after he had a stroke.
Imp: Unspecified Depressive d/o, persistent hopelessness and SI, denies intent to act
Rec: Continue current medications, allow time for response, monitor for GI side effects
Continue to pursue inpatient psychiatric placement. Will follow
[2025-06-06] MEDS: MIRALAX 17 GRAMS PO (12:22)
--- NOTE | 2025-06-06 14:28 | W.PN.HOSP.TC ---
Addendum entered and electronically signed by Gisselle Subramanian MD 06/06/25 14:47:
I saw and evaluated the patient independently. I reviewed the resident�s note and agree with findings and plan as documented by Dr. Calixto.
GENERAL: well developed, well nourished, male in no apparent distress
HEENT: NC/AT--slight left facial droop, loss of nasolabial fold
HEART: regular rate and rhythm, +S1, +S2
LUNGS : clear to auscultation bilaterally
ABDOM: soft, nontender, nondistended, + bowel sounds
EXT: no cyanosis, clubbing, or edema
NEUROLOGIC: left sided weakness
medically clear for d/c to inpt psych--await place
Chest pain--not ACS--EKG showed ventricular paced rhythm, no ST segment changes--apprec cards input--ECHO with reduced EF 25-30%- Continue aspirin, statin, metoprolol as BP allows--apprec cards-- changing to oral diuretics as BP tolerates
Acute on chronic HFrEF-- Pro-BNP 6580 on presentation, no pulmonary congestion on CXR--Holding home torsemide� Lasix to oral daily in AM� Continue GDMT therapy with SGLT2, metoprolol succinate 25mg cut to 12.5 mg due to hypotension--ARB
stopped--daily weight, I/Os
Mechanical fall-- Occurred day prior to admit, positive head strike, landed on left side of body--CT scan/x-rays without acute issues--PT/OT --did too well for SNF
Presumed persistent? Atrial fibrillation with ventricular pacing- Continue home amiodarone, metoprolol as BP allows- Continue Eliquis
Hypothyroidism� Continue levothyroxine� TSH WNL
Depression/anxiety- Continue sertraline, divalproex--apprec psych--no longer suicidal--1:1 stopped--psych recommending placement in geripsych unit if pt agreeable
Hyperlipidemia-Continue statin
COPD-Not in acute exacerbation-Continue home regimen
CODE STATUS-- DNR
DVT proph-- Eliquis
Original Note:
Today's Communication/Plan
-
- work with rn case manager to find patient an inpatient [facility] facility.
Assessment / Plan
Assessment / Plan
69-year-old male with a past medical history of CVA with residual left-sided hemiparesis, atrial fibrillation with ventricular pacing, heart failure with reduced ejection fraction, hypothyroidism, COPD, depression and anxiety who presented with
chest pain. Patient had an episode of left-sided chest pain with associated shortness of breath, palpitations, lightheadedness, 1 episode of vomiting and cough. Patient had a fall 05/30/25 while walking back from the grocery store to his assisted
living facility ([facility]) where he landed on the left side of his body and had a possible head strike on the ground. The police were called but patient was not taken to the hospital as he endorsed feeling well. He expresses suicidal ideation
with plan of stepping into traffic, and states he 'cannot live without his girl' who he is unsure of how to contact/if she even wants him to contact.
ASSESSMENT/PLAN:
# Chest pain, resolving with diuresis
# Coronary artery disease
EKG showed ventricular paced rhythm, no ST segment changes
- Admitted to telemetry
- Trending troponin every 6 hours, 0.042, 0.051, 0.067, 0.063, 0.066.
- Cardiology consulted, continue PO lasix, Toprol, Farxiga, Eliquis, amiodarone and aspirin. Valsartan discontinued due to hypotension. Trend CMP, weights, ins and outs.
- Switch diet from 2 g to 4 g sodium. Fluid restriction.
#Homicidal ideation
#Depression/anxiety
#Intermittent explosive disorder
- Patient stating he wants to kill his brother in law after finding out his friend Elmira has been unable to contact him, and thinks his brother law has been hiding her calls/voicemails from him.
- He is upset that we called her and said 'nobody asked for my permission.' Patient gave her number a few days ago when asked
- Consulted Psychiatry. Psych states plan is to 'get him into a psych facility then dc to a treatment center where he can get a insurance case manager to help him find a place.'
- Continue Zoloft 50 mg increased recently from 25 mg, sertraline 50 mg po daily, and abilify 2 mg as per psychs recc.
#Acute on chronic HFrEF
ProBNP 6580 on presentation, no pulmonary congestion on CXR. Cardiology following.
Repeat Echo showed EF 25 to 30%
- Cardiology consulted, continue PO lasix, Toprol, Farxiga, Eliquis, amiodarone and aspirin. Valsartan discontinued due to hypotension. Trend CMP, weights, ins and outs.
- Switch diet from 2 g to 4 g sodium. Fluid restriction.
#increased patients miralax to daily scheduled dose as he is complaining of not having a bowel movement. Last bowel movement was yesteday.
# Mechanical fall
- Occurred yesterday, positive head strike, landed on left side of body
- CT head without contrast: No acute intracranial hemorrhage or extra-axial collection.
- X-ray left shoulder and x-ray left hip/pelvis: No fracture or dislocation.
- PT recommend SNF placement
#Atrial fibrillation with ventricular pacing
- Continue home amiodarone, metoprolol 12.5 mg
- Continue Eliquis
#Hypothyroidism
� Continue levothyroxine
� Check TSH
#Hyperlipidemia
-Continue statin
#COPD
-Not in acute exacerbation
-Continue home regimen
CODE STATUS: Full code
DVT prophylaxis: Eliquis
Anticipated Discharge: 24 - 48 hours
Subjective/Interval History
-
Date of Service: June 06, 2025
only medical complaint is that he states he didn't have a bowel movement today despite having one yesterday.
No overnight events
Objective Data
-
Labs:
Laboratory Results
06/06/25
06:53
WBC 6.9
Hgb 13.7
Hct 40.8
Plt Count 158
Sodium 139
Potassium 4.4
Chloride 103
Carbon Dioxide 31 H
BUN 35 H
Creatinine 1.1
Glucose 84
Calcium 9.0
Total Bilirubin 0.5
AST 18
ALT 13
Alkaline Phosphatase 57
Vital Signs:
Vital Signs
Temp Pulse Resp BP Pulse Ox
97.4 F 61 20 108/57 96
06/06/25 07:00 06/06/25 07:00 06/06/25 07:00 06/06/25 07:00 06/06/25 08:50
I&O
06/05/25 06/06/25 06/07/25
06:59 06:59 06:59
Intake Total 240 / 240 840 / 840
Output Total 400 / 400
Balance -160 / -160 840 / 840
Review of Systems
-
History Source: Patient
Constitutional: Reports No Symptoms
EENT: Reports No Symptoms Reported
Respiratory: Reports No Symptoms
Cardiac: Reports No Symptoms
Abdomen/GI: Reports No Symptoms
Breast: Reports No Symptoms
Genitourinary: Reports No Symptoms
Musculoskeletal: Reports No Symptoms
Skin: Reports No Symptoms
Neuro: Reports No Symptoms
Endocrine: Reports No Symptoms
Hematologic / Lymphatic: Reports No Symptoms
Physical Exam
-
General: Well Developed, Well Nourished, No Apparent Distress and Comfortable
HEENT: Normocephalic, Atraumatic, Moist Mucous Membranes and Anicteric
Respiratory: Clear to Auscultation
Cardiac: Regular Rhythm and S1/S2
GI: Soft, Nontender, Nondistended and Normal Bowel Sounds
Musculoskeletal: No Clubbing, No Cyanosis, No Edema, Edema, Right Lower Extrem and Edema, Left Lower Extrem
Neuro: Awake and AO x 3
Psych: Agitated and Other (Homicidal ideation)
Data Reviewed
-
Labs: Labs Reviewed by me and Discussed with Physician
[2025-06-06 15:00] VITALS: BP 103/57
[2025-06-06] MEDS: DULCOLAX 10 MG PO (16:06)
[2025-06-06] MEDS: LIPITOR 40 MG PO (17:26)
[2025-06-06] MEDS: ABILIFY 2 MG PO (22:16)
[2025-06-06] MEDS: MELATONIN 3 MG PO (22:16)
[2025-06-06 22:20] VITALS: BP 101/69
[2025-06-07 06:00] VITALS: BMI 27.7
[2025-06-07] MEDS: SYNTHROID 100 MCG PO (06:26)
[2025-06-07 07:40] VITALS: BP 91/53
[2025-06-07 08:05] LABS: Hematocrit 40.7 % (39.0-52.0); Hemoglobin 14.1 g/dL (13.0-18.0); Mean Corp Hgb Conc. 34.6 g/dL (33.0-37.0); Mean Corpuscular Volume 95.1 fL (80.0-94.0); Nucleated Red Blood Cells % 0 % (-); Platelet Count 160 10^3/uL (130-400); Red Cell Dist. Width 12.1 % (11.5-14.5)
[2025-06-07 08:35] LABS: ALT (SGPT) 13 U/L (0-50); AST (SGOT) 19 U/L (17-59); Albumin 3.8 g/dl (3.5-5.0); Alkaline Phosphatase 58 U/L (38-126); Blood Urea Nitrogen 32 mg/dl (9-20); Calcium 9.0 mg/dl (8.4-10.2); Carbon Dioxide 27 mmol/L (22-30); Chloride 105 mmol/L (98-107); Estimated Creatinine Clearance 78 ml/min; Glucose 82 mg/dl (70-99); Magnesium 1.6 mg/dl (1.6-2.3); Potassium 4.6 mmol/L (3.5-5.1); Sodium 139 mmol/L (135-145); Total Protein 6.2 g/dl (6.3-8.2); eGFR > 60.00
[2025-06-07] MEDS: ASPIR LOW (ENTERIC COATED) 81 MG PO (08:56)
[2025-06-07] MEDS: DEPAKOTE (12 HR RELEASE) 1000 MG PO (08:59)
[2025-06-07] MEDS: MAG-TAB SR 84 MG PO (08:59)
[2025-06-07] MEDS: FARXIGA 10 MG PO (08:59)
[2025-06-07] MEDS: LASIX 40 MG PO (08:59)
[2025-06-07] MEDS: ELIQUIS 5 MG PO (08:59)
[2025-06-07] MEDS: PACERONE 200 MG PO (08:59)
[2025-06-07] MEDS: MIRALAX 17 GRAMS PO (09:00)
[2025-06-07] MEDS: VITAMIN B-12 1000 MCG PO (09:00)
[2025-06-07] MEDS: TOPROL XL 12.5 MG PO (09:00)
[2025-06-07] MEDS: ZOLOFT 50 MG PO (09:00)
--- NOTE | 2025-06-07 10:06 | PTCARENOTE ---
On rounds this am, pt stated being very angry towards the kitchen staff, said, 'They called me a liar', and pt states he will be boycotting eating until he leaves. 'They only want to send me to the 'nuthouse' and I am fine. I'm only angry about
things.' Pt encouraged to eat. This nurse called the kitchen and re ordered pt's breakfast and lunch. Informed the pt this was done, and pt preceded to call the kitchen back and cancel the orders. MD aware of pt's behavior and requests. Pt did
cooperate and take his meds for me this am. Care ongoing.
--- NOTE | 2025-06-07 11:12 | W.PN.UPDATE ---
Update Note
Progress Note Update
Pt seen, appears overall the same, although he got angry at the hospital kitchen this morning. Pt c/o wanting to order some different choices, but restricted due to sodium content on his diet, c/o his breakfast order was lost. Pt protesting by
refusing to order food today. Pt presents with the same mildly pressured and monotone speech, somewhat repetitive. 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
No side effects evident with medication changes- increased Zoloft, addition of Abilify. Pt states he is aware it is too soon to see the effect. Pt expressing mixed feelings about the prospect of inpatient psychiatric placement.
Imp: Unspecified Depressive d/o, persistent hopelessness and SI, denies intent to act
Rec: Continue current medications, allow time for response
Continue to pursue inpatient psychiatric placement. Will follow
--- NOTE | 2025-06-07 12:58 | PTCARENOTE ---
Addendum entered by Christina Durand RN 06/07/25 13:48:
Money returned to pt, counted by security and this nurse. Pt escorted to lobby with security to call a cab for pt.
Original Note:
Went to assess pt's wish to leave AMA. Noted paper was signed by doctor. Pt was sitting on side of bed getting dressed. Asked if he had a ride, he said, 'No, I'm just going to walk around outside.' Suggested pt not do that, possibly call for a cab.
He said phone wasn't working. Allowed pt to use phone at nurses station. Pt called his brother in law to let him know he was leaving. Pt is adamant to leave. Awaiting security to bring up pt's money.
--- NOTE | 2025-06-07 13:15 | CM ---
Addendum entered by Sena Villalobos 06/07/25 14:37:
333 cab service arranged for patient to the [facility]
Original Note:
Chart reviewed. Pending [facility] psych placement.
Per hospitalist, patient is wanting to leave AMA, AMA paperwork completed. Per nurse, patient is upset that he cannot eat what he wants due to current diet orders.
Patient called his brother in law to inform him that he's leaving AMA and will get a Motel room for the night. Patient currently waiting on security to bring his money.
Update w/ psych referrals: [facility] declined admission
--- NOTE | 2025-06-07 14:18 | W.PN.HOSP.TC ---
Today's Communication/Plan
-
Left AMA
Assessment / Plan
Assessment / Plan
Pt is a 69 year old male
Patient has decided not to eat breakfast, lunch, nor order dinner because he cannot have what he wants on the menu. I have explained to him that he cannot have a high salt intake because of his heart failure. He also refused to speak to me. I
explained to him that he can leave here at any time but that it would be AGAINST MEDICAL ADVICE. He signed the paperwork and his left the building.
Chest pain--not ACS--EKG showed ventricular paced rhythm, no ST segment changes--apprec cards input--ECHO with reduced EF 25-30%- Continue aspirin, statin, metoprolol as BP allows--apprec cards-- changing to oral diuretics as BP tolerates
Acute on chronic HFrEF-- Pro-BNP 6580 on presentation, no pulmonary congestion on CXR--Holding home torsemide� Lasix to oral daily in AM� Continue GDMT therapy with SGLT2, metoprolol succinate 25mg cut to 12.5 mg due to hypotension--ARB
stopped--daily weight, I/Os
Mechanical fall-- Occurred day prior to admit, positive head strike, landed on left side of body--CT scan/x-rays without acute issues--PT/OT --did too well for SNF
Presumed persistent? Atrial fibrillation with ventricular pacing- Continue home amiodarone, metoprolol as BP allows- Continue Eliquis
Hypothyroidism� Continue levothyroxine� TSH WNL
Depression/anxiety- Continue sertraline, divalproex--apprec psych--no longer suicidal--1:1 stopped--psych recommending placement in geripsych unit if pt agreeable
Hyperlipidemia-Continue statin
COPD-Not in acute exacerbation-Continue home regimen
CODE STATUS-- DNR
DVT proph-- Eliquis
Plan was for voluntary inpatient psych but he has left AGAINST MEDICAL ADVICE. He is also refusing to provide us with a pharmacy so that I may send his medications there.
Anticipated Discharge: Today
Subjective/Interval History
-
Date of Service: June 07, 2025
Patient is refusing to eat because he cannot have the diet that he wants. He is also refusing to speak with anybody.
Objective Data
-
Labs:
Laboratory Results
06/07/25
07:14
WBC 7.2
Hgb 14.1
Hct 40.7
Plt Count 160
Sodium 139
Potassium 4.6
Chloride 105
Carbon Dioxide 27
BUN 32 H
Creatinine 1.0
Glucose 82
Calcium 9.0
Total Bilirubin 0.5
AST 19
ALT 13
Alkaline Phosphatase 58
Vital Signs:
Vital Signs
Temp Pulse Resp BP Pulse Ox
97.9 F 63 16 91/53 94
06/07/25 07:40 06/07/25 07:40 06/07/25 07:40 06/07/25 07:40 06/07/25 08:45
I&O
06/06/25 06/07/25 06/08/25
06:59 06:59 06:59
Intake Total 840 / 840
Output Total 625 / 1125 500 / 500
Balance 840 / 840 -625 / -1125 -500 / -500
Review of Systems
-
Unable to obtain full review of systems at this time due to: Other (Patient refusing to speak to me)
Physical Exam
-
General: Well Developed, Well Nourished and No Apparent Distress
HEENT: Normocephalic and Atraumatic
Respiratory: Clear to Auscultation; Negative Wheezes, Rales, Rhonchi or Crackles
Cardiac: Regular Rhythm and S1/S2; Negative Murmur
GI: Soft, Nontender, Nondistended and Normal Bowel Sounds
Musculoskeletal: No Clubbing, No Cyanosis and No Edema
Neuro: Awake
Psych: Depressed
--- NOTE | 2025-06-07 14:26 | W.DCSUMMARY ---
Discharge Summary
Discharge Data
Date of Admission: 05/31/25
Date of Discharge: 06/07/25
-
Pending Results: No
Hospital Course
Primary care physician : None Listed.
Principal Discharge diagnosis : Chest pain from acute on chronic reduced ejection fraction heart failure exacerbation
Chronic Discharge diagnosis : presumed persistent atrial fibrillation with ventricular pacing, hypothyroidism, depression/anxiety, hyperlipidemia, chronic obstructive pulmonary disease
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
complaints of chest pain. Patient stated that he had left-sided chest pain on the morning of admission with associated shortness of breath and lightheadedness. At the time of his admission he denied chest pain. He stated he was discharged to an
assisted living facility [facility] from [facility] where he was admitted 3 days prior to this admission. He had not gotten any of his prescription medications filled in the past 3 days prior to admission. He noted increased
bilateral lower extremity swelling and was unclear if he had syncope. He stated that he sustained a fall while walking back from the grocery store to his assisted living. He states he became dizzy while on the sidewalk and fell. He he stated that
the police were called and he was returned back to the assisted living facility without any medical care. Patient was admitted.
Problem #1: Chest pain from acute on chronic heart failure exacerbation with reduced ejection fraction. Patient was admitted and seen in consultation by cardiology. He was given IV Lasix and his home torsemide was placed on hold. His admission
weight was 100.7 kg and on 06/07/2025 his weight was 92.5 kg. Patient denies any shortness of breath or chest pain. Medications have been adjusted and his metoprolol was cut to 12.5 mg. Lasix was converted to 40 mg daily. Patient was placed on a
2 g sodium restriction. After conversation with him earlier in the week, I did liberalize him to 4 g of sodium. Unfortunately, patient is not happy with that and wants a regular diet. I tried to explain to him the rationale, however, he refused
to talk to me. (Stating 'how can I talk to you if I am not talking to you'). I then explained that he is free to leave at any time and that he is not a hostage here. However, it would be AGAINST MEDICAL ADVICE. I did get the paperwork and told
him that leaving and not following his appropriate diet could result in shortness of breath, respiratory distress, volume overload, coma, . He signed the AMA paperwork.
Problem #2: Depression. Initially, patient expressed intent to harm himself with a plan of walking into traffic. He was seen in consultation by psychiatry. He was eventually taken off the one-to-one and agreed to inpatient psychiatric treatment
for his depression. His sertraline was increased. Aripiprazole was initiated. Patient left the hospital AGAINST MEDICAL ADVICE prior to him being placed at an inpatient psych facility.
Problem #3: All of the medical issues. These include presumed persistent atrial fibrillation with ventricular pacing, hypothyroidism, hyperlipidemia, chronic obstructive pulmonary disease. These medical issues were stable during his
hospitalization. Medications were continued as able.
Patient left the hospital AGAINST MEDICAL ADVICE after signing the AMA paperwork. I attempted to reach him to have him provide us with a pharmacy where I may send his medications. He refused to give me one. He has therefore left without any
medications and is high risk for readmission here or at another hospital.
Time for discharge 35 minutes.
Discharge Plan
-
Patient Disposition: Against Medical Advice
Discharge Diagnosis/Procedures: acute on chronic heart failure with reduced ejection fraction, coronary artery disease, depression, anxiety.
Condition: Fair
Diet: Low Sodium, No added salt and Restrict fluids to 48 oz
Activity: As tolerated
Driving Restrictions: As prior to admission
Bathing Restrictions: None
Activity Restrictions/Additional Instructions:
You will need to find a primary doctor and follow up in 1 week.
You will need to find a coloring checker and follow up in 1 week.
Referrals:
NONE,* [Family Provider, Internal Medicine] - in less than 1 week
Prescriptions:
New
aripiprazole 2 mg Tablet
2 mg PO HS Qty: 20 0RF
furosemide 40 mg Tablet
40 mg PO DAILY Qty: 20 0RF
metoprolol succinate 25 mg Tablet Extended Release 24 Hr
12.5 mg PO DAILY Qty: 20 0RF
polyethylene glycol 3350 17 gram Powder In Packet
17 g PO DAILY Qty: 0 0RF
sertraline 50 mg Tablet
50 mg PO DAILY Qty: 20 0RF
Continued
atorvastatin 40 mg tablet
40 mg PO QPM
amiodarone 200 mg Tablet
200 mg PO DAILY
cyanocobalamin (vitamin B-12) 1,000 mcg Tablet
1,000 mcg PO DAILY
melatonin 3 mg Tablet
3 mg PO HS
divalproex 500 mg Tablet,Delayed Release (Dr/Ec)
1,000 mg PO BID
aspirin 81 mg Tablet,Delayed Release (Dr/Ec)
81 mg PO DAILY
levothyroxine 100 mcg Tablet
100 mcg PO DAILY
midodrine 2.5 mg Tablet
7.5 mg PO TID
ergocalciferol (vitamin D2) 1,250 mcg (50,000 unit) Capsule
1,250 mcg PO QWEEK
albuterol sulfate 90 mcg/actuation Hfa Aerosol Inhaler
2 puff INHALATION R Q4HPRN PRN (Reason: wheezing/sob)
Eliquis 5 mg Tablet
5 mg PO BID
empagliflozin 10 mg Tablet
10 mg PO DAILY
magnesium oxide 400 mg magnesium Tablet
400 mg PO BID
Discontinued
torsemide 20 mg Tablet
40 mg PO DAILY
sertraline 25 mg Tablet
25 mg PO DAILY
metoprolol succinate 25 mg tablet extended release 24 hr
25 mg PO DAILY
Discharge Orders:
Discharge Patient (As Directed); Ordered 06/07/25
Ordered By: Gisselle Subramanian
Discharge Date and Time
Print Language: DANISH
== END 2025-06-07 14:45 | disposition left against medical advice (07) | DRG 291 ==
LOC: 4 WEST ACU 18:10
PROVIDERS: Psychiatry & Neurology Psychiatry; ADMITTING PHYSICIAN Internal Medicine; ATTENDING PHYSICIAN Internal Medicine; EMERGENCY PHYSICIAN Emergency Medicine; OTHER PHYSICIAN Nuclear Medicine Nuclear Cardiology; OTHER PHYSICIAN Psychiatry & Neurology Psychiatry
PROC: 5A09357 Assistance with Respiratory Ventilation, Less than 24 Consecutive Hours, Continuous Positive Airway Pressure (ICD-10-PCS; 2025-06-01)
DX: I11.0 Hypertensive heart disease with heart failure (principal); I50.23 Acute on chronic systolic (congestive) heart failure; I48.19 Other persistent atrial fibrillation; I69.354 Hemiplegia and hemiparesis following cerebral infarction affecting left non-dominant side; R45.851 Suicidal ideations; Z59.00 Homelessness unspecified; I5A Non-ischemic myocardial injury (non-traumatic); F41.9 Anxiety disorder, unspecified; F32.A Depression, unspecified; E03.9 Hypothyroidism, unspecified; J44.9 Chronic obstructive pulmonary disease, unspecified; I25.10 Atherosclerotic heart disease of native coronary artery without angina pectoris; I25.5 Ischemic cardiomyopathy; I70.0 Atherosclerosis of aorta; F63.81 Intermittent explosive disorder; R45.850 Homicidal ideations; I95.9 Hypotension, unspecified; W01.198A Fall on same level from slipping, tripping and stumbling with subsequent striking against other object, initial encounter; Y93.01 Activity, walking, marching and hiking; Y92.414 Local residential or business street as the place of occurrence of the external cause; Z53.29 Procedure and treatment not carried out because of patient's decision for other reasons; Z66 Do not resuscitate; Z60.2 Problems related to living alone; I25.2 Old myocardial infarction; Z86.14 Personal history of Methicillin resistant Staphylococcus aureus infection; Z95.810 Presence of automatic (implantable) cardiac defibrillator; Z91.148 Patient's other noncompliance with medication regimen for other reason; Z87.891 Personal history of nicotine dependence; Z79.890 Hormone replacement therapy; Z79.84 Long term (current) use of oral hypoglycemic drugs; Z80.6 Family history of leukemia; Z82.49 Family history of ischemic heart disease and other diseases of the circulatory system; Z79.01 Long term (current) use of anticoagulants; Z63.8 Other specified problems related to primary support group
CPT/HCPCS: 70450; 71046; 73030; 73502; 80053; 80164; 82306; 82607; 82746; 83735; 83880; 84443; 84484; 85025; 85610; 85730; 87070; 93005; 93306; 96374; 97116; 97162; 97167; 97530; 99285